=== PATIENT | female | born 1970 | race Caucasian/White ===

== ENCOUNTER → 2018-01-07 | Day surgery (SDC) | payer BC ==
--- NOTE | 2018-01-08 15:47 | PATH ---
Surgical Pathology Report Patient Name: HAKEEM NASCIMENTO [facility]. Rec. #: [id number] /Age/Gender: 1970 (Age: 47) / F Account: [id number] Location: [facility] Taken: 01/07/2018 Received: 01/07/2018 Reported: 01/08/2018 Physicians: Sahra Collier M.D. Specimen(s) Received A: LEFT BREAST SPECIMEN WITH CALCIFICATIONS B: LEFT BREAST SPECIMEN WITHOUT CALCIFICATIONS Clinical History Nonpalpable lesion Mammographic findings: Microcalcification, suspicious Final Diagnosis A. LEFT BREAST SPECIMEN WITH CALCIFICATIONS, STEREOTACTIC BIOPSY: DUCTAL CARCINOMA IN SITU (DCIS), HIGH NUCLEAR GRADE, SOLID AND COMEDO TYPE, WITH LOBULAR EXTENSION. NECROSIS AND CALCIFICATIONS SEEN IN DCIS. B. LEFT BREAST SPECIMEN WITHOUT CALCIFICATIONS, STEREOTACTIC BIOPSY: DUCTAL CARCINOMA IN SITU (DCIS), INTERMEDIATE TO HIGH NUCLEAR GRADE, SOLID AND CRIBRIFORM TYPE, WITH LOBULAR EXTENSION. Results of Estrogen Receptor (ER) and Progesterone Receptor (CT) studies performed on block "A" at [facility] are as follows: ER (clone [id number] mouse monoclonal antibody by Leica): 100% nuclear staining with strong intensity (Positive). CT (clone16 mouse monoclonal antibody by Leica): >1% nuclear staining with strong intensity (Positive). Results of Estrogen Receptor (ER) and Progesterone Receptor (CT) studies performed on block "B" at [facility] are as follows: ER (clone [id number] mouse monoclonal antibody by Leica): 100% nuclear staining with strong intensity (Positive). CT (clone16 mouse monoclonal antibody by Leica): 40% nuclear staining with strong intensity (Positive). Positive and negative controls (internal if applicable) show appropriate results. Formalin fixation and cold ischemic times are within current ASCO/CAP recommendations for ER, CT and Her2 testing. Comment: Immunohistochemical stains performed at block "B" showed the following results: smooth muscle myosin heavy chain and p63 highlighted myoepithelial cell layer in the areas of interest, consistent with DCIS. E-Cadherin performed at block "A" show strong membranous staining pattern in the DCIS with lobular extension. Intradepartmental case reviewed with consensus on diagnosis. Electronically Signed Kiyoe Perea, M.D. Gross Description A. Received in formalin labeled "left breast with calcifications," are 5 proctor-yellow, cylindrical portions of fibroadipose tissue ranging from 1.3-4.0 cm in length and averaging 0.3 cm in diameter. The specimens are submitted in toto in one cassette. B. Received in formalin labeled "left breast without calcifications," are 5 porctor-yellow, cylindrical portions of fibroadipose tissue ranging from 0.3-2.5 cm in length and averaging 0.3 cm in diameter. The specimens are submitted in toto in one cassette. Time to formalin fixation: 5 minutes Total formalin fixation time: Approximately 8 hours. 01/07/2018 saudi01/07/2018
== END | disposition home or self-care (01) ==
LOC: FMAMMOTONE 08:13
PROVIDERS: ATTEND Family Medicine
PROC: 0HBU3ZX Excision of Left Breast, Percutaneous Approach, Diagnostic (ICD-10-PCS; principal; 2018-01-07)
DX: D05.92 Unspecified type of carcinoma in situ of left breast (principal); Z17.0 Estrogen receptor positive status [ER+]; R92.1 Mammographic calcification found on diagnostic imaging of breast
CPT/HCPCS: 19081; 88305-TC; 88341-TC; 88342-TC

== ENCOUNTER → 2018-02-17 | Day surgery (SDC) | payer BC ==
--- NOTE | 2018-02-19 09:27 | PATH ---
Surgical Pathology Report Patient Name: HAKEEM NASCIMENTO [facility]. Rec. #: [id number] /Age/Gender: 1970 (Age: 47) / F Account: [id number] Location: [facility] Taken: 02/17/2018 Received: 02/17/2018 Reported: 02/19/2018 Physicians: Faisal Marquez M.D. Specimen(s) Received SUSPICIOUS ENHANCEMENT LEFT UOQ Clinical History Newly diagnosed left DCIS, suspicious enhancement left upper outer quadrant Final Diagnosis LEFT BREAST, UPPER OUTER QUADRANT, NEEDLE CORE BIOPSY: BENIGN BREAST TISSUE WITH STROMAL FIBROSIS AND FOCAL DUCTAL DILATATION. Comment: Also see prior specimen [id number]. Electronically Signed Brendan Camacho M.D. Gross Description Received in formalin, labeled with the patient's name and indicated on the requisition to be a left breast biopsy, is a 4.0 x 2.5 x 0.3 cm aggregate of multiple proctor-yellow, irregular to cylindrical portions of fibroadipose tissue. The formalin is filtered and the specimen is entirely submitted in one cassette. Time to formalin fixation: 2 minutes Total formalin fixation time: Approximately 30 hours. /02/18/2018 saudi02/18/2018
== END | disposition home or self-care (01) ==
LOC: FRADUS-SUR 10:23
PROVIDERS: ATTEND Surgery Surgical Oncology
PROC: 0HBU3ZX Excision of Left Breast, Percutaneous Approach, Diagnostic (ICD-10-PCS; principal; 2018-02-17)
DX: N60.32 Fibrosclerosis of left breast (principal); N64.89 Other specified disorders of breast; N63.21 Unspecified lump in the left breast, upper outer quadrant
CPT/HCPCS: 19085; 77065-TC; 88305-TC; C1887

== ENCOUNTER 2018-03-18 05:14 | Inpatient (IN) | payer BC ==
[2018-03-10 12:55] VITALS: BMI 34.7
[2018-03-18] MEDS ORDERED: PAPAVERINE HCL 30 MG/1 ML 10 ML VIAL NR ONE (07:03)
[2018-03-18] MEDS ORDERED: BUPIVACAINE HCL/PF 0.25% (2.5MG/ML) 10 ML VIAL ONE (07:04)
[2018-03-18] MEDS ORDERED: ISOSULFAN BLUE 10 MG/ML VIAL SQ ONE (07:04)
[2018-03-18] MEDS ORDERED: HEPARIN NA (PORCINE) 5,000 UNITS/ML 1ML VIAL ONE (07:04)
[2018-03-18] MEDS ORDERED: LIDOCAINE 1%/EPI 1:100000 (20 ML MULTI DOSE VIAL) ONE (07:36)
[2018-03-18] MEDS ORDERED: fentaNYL CITRATE 250 MCG/5 ML VIAL ONE ×2 (07:48→10:22)
[2018-03-18] MEDS ORDERED: PROPOFOL 20 ML ONE ×5 (07:48→12:57)
[2018-03-18] MEDS ORDERED: MIDAZOLAM HCL 2 MG/2 ML SINGLE DOSE VIAL ONE ×2 (07:48)
[2018-03-18] MEDS ORDERED: ROCURONIUM BROMIDE 50 MG/5 ML VIAL ONE ×4 (07:48→13:17)
[2018-03-18] MEDS ORDERED: LIDOCAINE HCL/PF 2% SDV 5ML VIAL ONE (08:19)
[2018-03-18] MEDS ORDERED: ceFAZolin SODIUM 1 GM VIAL IVPB ONE (08:55)
[2018-03-18] MEDS ORDERED: BUPIVACAINE LIPOSOME/PF (EXPAREL) 266 MG/20 ML VIAL NR ONE (10:00)
[2018-03-18] MEDS ORDERED: DEXAMETHASONE SOD PHOSPHATE 4 MG/1 ML VIAL ONE (10:22)
[2018-03-18] MEDS ORDERED: ONDANSETRON 4 MG/2 ML VIAL ONE ×2 (10:22→14:08)
[2018-03-18] MEDS ORDERED: DESFLURANE GAS 240 ML BOTTLE IH ONE (12:50)
[2018-03-18] MEDS ORDERED: ceFAZolin SODIUM 1 GM VIAL ONE ×2 (13:00→19:35)
[2018-03-18] MEDS ORDERED: NEOSTIGMINE METHYLSULFATE 0.5 MG/ML - 10 ML MDV ONE (14:08)
[2018-03-18] MEDS ORDERED: GLYCOPYRROLATE 0.2 MG/1 ML VIAL ONE (14:09)
[2018-03-18] MEDS ORDERED: diazePAM 5 MG TABLET PO PRN (15:11)
--- NOTE | 2018-03-18 15:11 | OP ---
DATE OF OPERATION: 03/18/2018 PREOPERATIVE DIAGNOSIS: Left breast ductal carcinoma in situ, high grade. POSTOPERATIVE DIAGNOSIS: Left breast ductal carcinoma in situ, high grade. PROCEDURE: Left breast total mastectomy with left axillary sentinel lymph node biopsy and left deep inferior epigastric development manager (BENJI) flap reconstruction with right reduction mastopexy. ANESTHESIA: General endotracheal. PRIMARY SURGEON: Jessica Momin MD CAMPUS POLICE OFFICER: DANNY Cao PRIMARY SURGEON FOR THE LEFT BREAST DEEP INFERIOR EPIGASTRIC MEDICATION TECHNICIAN FLAP RECONSTRUCTION AND RIGHT BREAST REDUCTION MASTOPEXY: Jessica Guadalupe MD, with his development assistant Dr. Kareem Villareal. COMPLICATIONS: None. Briefly, the patient is a 47-year-old, G4, P2, postmenopausal white female of [place] descent with no family history of breast or ovarian cancer. Her mother had colon cancer, and an uncle had prostate cancer. She was found to have some calcifications in the retroareolar region of the left breast as well as in the upper outer quadrant and underwent a stereotactic core biopsy in December 2017, showing high-grade DCIS which was ER positive, NC positive. MRI showed significant enhancement towards the upper outer aspect of the left breast, and she underwent an MRI-guided core biopsy which was benign, but this was felt to be discordant with the MRI findings. Due to the extent of the calcifications, a mastectomy is recommended on the left side with removal of the nipple. She was seen by Plastic Surgery and chose to have autologous BENJI flap reconstruction. She wanted to have symmetry reduction on the right side at the same sitting. She was brought in for the procedure on March 18, 2018. She first went to nuclear medicine where lymphoscintigraphy was performed with a periareolar injection of technetium 99 into the left breast nipple-areolar complex. She was then brought to the holding area. In the holding area, site verification was made, and informed consent was obtained. She was marked preoperatively by the plastic surgeon. She was brought into the operating room and laid on the OR table in the supine position. Venodynes were placed on the lower extremities prior to induction. She received 2 g of Ancef prior to incision. She underwent general endotracheal anesthesia. A Bishop was placed at the beginning of the case, and both breasts as well as her abdomen were sterilely prepped and draped in the usual fashion with the left arm prepped in the field. Next, 3 mL of Lymphazurin blue were injected intradermally around the periareolar region of the left breast nipple-areolar complex. At this point, after a timeout, the sentinel lymph node biopsy was first performed. Incision was made just below the hair-bearing area of the left axilla and dissection was undertaken and a blue hot lymphatic was easily seen in the level I region of the left axilla with a 10-second gamma count of 5622. No other blue or hot nodes were found, and background count after removal of this 1 node was 179. At this point, the mastectomy was performed while the BENJI flap harvesting was being performed as well as the reduction mastopexy on the right breast. The mastectomy was performed through a periareolar incision around the left breast nipple-areolar complex. Skin flaps were raised superiorly to the level of the clavicle, medially to the level of the sternum, laterally to the level of the latissimus, and inferiorly below the level of the inframammary fold. The breast was taken down off the pectoralis major muscle from medial to lateral and completely removed intact. It was oriented with a long lateral/short superior suture. It was weighed to allow for appropriate cosmetic result. Specimen radiograph was taken of the breast, showing the 2 clips which had been placed prior to the surgery. A separate anterior margin was taken on the superior skin flap and sent to pathology as specimen with a suture marking the biopsy cavity side. There was also a separate area of breast tissue removed from the lower outer quadrant which was sent separately as lower outer quadrant specimen. Hemostasis was achieved, and the wound was copiously irrigated with warm sterile saline. Estimated blood loss at this point in the procedure was about 150 mL, and she was hemodynamically stable. The rest of the procedure including the BENJI flap reconstruction and right breast reduction mastopexy will be dictated by Dr. Guadalupe and Dr. Villareal. All sponge and needle counts were correct at this point in the case. The patient will be admitted postoperatively after the BENJI flap reconstruction and monitored closely in the ICU for flap monitoring. JESSICA MOMIN M.D. [id number]
[2018-03-18] MEDS ORDERED: ONDANSETRON 4 MG/2 ML VIAL IVPUSH PRN (15:12)
[2018-03-18] MEDS ORDERED: PROMETHAZINE HCL 25 MG/1 ML VIAL IVPUSH PRN (15:12)
[2018-03-18] MEDS ORDERED: LACTATED RINGERS SOLUTION 1,000 ML IV SCH (15:15)
[2018-03-18] MEDS ORDERED: DEXTROSE 5%-0.45% SALINE 1,000 ML IV SCH (15:15)
[2018-03-18] MEDS ORDERED: HYDROmorphone *PCA* 10MG/50ML DISP.SYRIN PCA SCH (19:15)
[2018-03-18] MEDS ORDERED: DEXTROSE 5%-WATER - 50 ML IVPB ONE (19:35)
[2018-03-18] MEDS: ACETAMINOPHEN 325 MG TABLET (FP) PO PRN (19:41)
[2018-03-18] MEDS: oxyCODONE HCL 5 MG TABLET PO PRN (19:41)
[2018-03-18] MEDS: CEFAZOLIN 1 GM in DEXTROSE 5%-WATER - 50 ML IVPB SCH (19:42)
--- NOTE | 2018-03-18 20:06 | CONSULT ---
Consultation: REQUESTING PROVIDER: CONSULT REQUEST: We have been asked to medically evaluate this patient for ( specify). HISTORY OF PRESENT ILLNESS: This is a previously healthy 47 yo F with no PMH, who was recently diagnosed with L breast CA (high grade DCIS, ER/NV+) via core biopsy, here POD 0 s/p L total mastectomy, L sentinel lymph node biopsy, with autologous BENJI flap and R reduction mastopexy. Patient denies family history of breast or ovarian CA. She is BRACA negative. She is afebrile and hemodynamically stable post op. Pain is manages with PO oxycodone. She denies n/v, and pain, f/c, cp. throat pain, sob. REVIEW OF SYSTEMS: CONSTITUTIONAL: Absent: fever, chills, weight change HEENT: Absent: rhinorrhea, nasal congestion, throat pain, throat swelling, difficulty swallowing CARDIOVASCULAR: Absent: chest pain, syncope, palpitations, irregular heart rate, lightheadedness RESPIRATORY: Absent: cough, shortness of breath, orthopnea GASTROINTESTINAL: Absent: abdominal pain, abdominal distension, nausea, vomiting, diarrhea, constipation GENITOURINARY: Absent: dysuria, flank pain MUSCULOSKELETAL: Absent: back pain, neck pain SKIN: Absent: rash, itching, pallor HEMATOLOGIC/IMMUNOLOGIC: Absent: easy bleeding, easy bruising ENDOCRINE: Absent: heat intolerance, cold intolerance NEUROLOGIC: Absent: headache, focal weakness or paresthesias PSYCHIATRIC: Absent: anxiety, depression PHYSICAL EXAMINATION Vital Signs - 24 hr 03/18/18 03/18/18 03/18/18 06:29 06:30 15:00 Temperature 97.5 F L 98.4 F Pulse Rate 68 62 Respiratory 16 13 Rate Blood Pressure 112/70 127/66 O2 Sat by Pulse 98 99 Oximetry (%) 03/18/18 03/18/18 03/18/18 15:15 15:30 15:45 Temperature Pulse Rate 64 66 77 Respiratory 15 18 18 Rate Blood Pressure 115/68 111/65 120/68 O2 Sat by Pulse 99 98 98 Oximetry (%) 03/18/18 03/18/18 03/18/18 16:00 16:15 16:30 Temperature Pulse Rate 64 72 74 Respiratory 14 14 18 Rate Blood Pressure 120/62 105/67 112/64 O2 Sat by Pulse 100 98 97 Oximetry (%) 03/18/18 03/18/18 03/18/18 16:45 17:00 17:15 Temperature Pulse Rate 77 80 84 Respiratory 18 20 20 Rate Blood Pressure 114/64 112/65 118/68 O2 Sat by Pulse 97 99 99 Oximetry (%) 03/18/18 03/18/18 03/18/18 17:30 17:45 18:00 Temperature 98.5 F Pulse Rate 68 76 72 Respiratory 18 20 16 Rate Blood Pressure 118/65 121/68 120/69 O2 Sat by Pulse 98 98 Oximetry (%) GENERAL: Awake, alert, and fully oriented, in no acute distress. HEAD: Normal with no signs of trauma. EYES: Pupils equal, round and reactive to light, extraocular movements intact, sclera anicteric, conjunctiva clear. No lid lag. EARS, NOSE, THROAT: Moist mucous membranes. NECK: supple LUNGS: Breath sounds equal, clear to auscultation bilaterally. splinting due to anterior chest wall pain HEART: Regular rate and rhythm, normal S1 and S2 ABDOMEN: clean dressing in place. globally reduced bowel sounds MUSCULOSKELETAL: No CVA tenderness. UPPER EXTREMITIES: 2+ pulses, warm, well-perfused. No peripheral edema. LOWER EXTREMITIES: 2+ pulses, warm, well-perfused. No peripheral edema. L breast: flap + doppler. clean dressing intact NEUROLOGICAL: Cranial nerves II-XII grossly intact. Normal speech. PSYCHIATRIC: Cooperative. Good eye contact. Appropriate mood and affect. SKIN: Warm, dry Laboratory Results - last 24 hr 03/18/18 06:16 Blood Type B POSITIVE Antibody Screen Negative Crossmatch See Detail Active Medications Generic Name Dose Route Start Last Admin Trade Name Freq PRN Reason Stop Dose Admin Acetaminophen 650 mg 03/18/18 20:00 03/18/18 19:41 Tylenol - PO 650 mg Q6H PRN Administration PAIN 1-3 Aspirin 325 mg 03/19/18 10:00 Asa - PO DAILY [facility] Diazepam 5 mg 03/18/18 15:11 Valium - PO Q8H PRN MUSCLE SPASMS Docusate Sodium 100 mg 03/18/18 22:00 Colace - PO BID [facility] Enoxaparin Sodium 40 mg 03/19/18 10:00 Lovenox - SQ DAILY [facility] Fentanyl 50 mcg 03/18/18 15:12 Sublimaze Injection - IVPUSH [id number] PRN PAIN-PACU ORDER X 4 DOSES ONLY Cefazolin Sodium 1 gm/ 50 mls @ 100 mls/hr 03/18/18 19:50 03/18/18 19:42 Dextrose IVPB 03/19/18 19:49 100 mls/hr Q6H JERMAINE Administration Dextrose/Sodium Chloride 1,000 mls @ 125 mls/hr 03/18/18 15:15 D5-1/2ns - IV 03/19/18 08:00 ASDIR JERMAINE Dextrose/Sodium Chloride 1,000 mls @ 75 mls/hr 03/19/18 08:00 D5-1/2ns - IV ASDIR JERMAINE Ondansetron HCl 4 mg 03/18/18 15:12 Zofran Injection IVPUSH Q6H PRN NAUSEA AND/OR VOMITING Oxycodone HCl 5 mg 03/19/18 15:11 Roxicodone - PO Q4H PRN PAIN LEVEL 1-5 Oxycodone HCl 10 mg 03/18/18 15:11 03/18/18 19:41 Roxicodone - PO 10 mg Q4H PRN Administration PAIN LEVEL 6-10 Promethazine HCl 12.5 mg 03/18/18 15:12 Phenergan Injection - IVPUSH Q6H PRN NAUSEA-FOR RESCUE AFTER 15 MIN ASSESSMENT/PLAN: This is a previously healthy 47 yo F with no PMH, who was recently diagnosed with L breast CA (high grade DCIS, ER/NV+) via core biopsy here s/p L mastectomy with BENJI flap POD 0 s/p L total mastectomy, L sentinel lymph node biopsy, with autologous BENJI flap and R reduction mastopexy. -flap doppler checks q1h -bear hugger -strict bed rest/immobilization -IVF repletion d5 1/2ns @125 -pain control with oxycodone 5, 10 and tylenol -modereate PO intake allowed by surgery -Kenna sq dvt ppx -asa daily -Ppx cefazolin -monitor UO Dispo: We will continue to follow the patient. Thank you for this consultative opportunity. Problem List - Problems (1) Breast cancer Code(s): C50.919 - MALIGNANT NEOPLASM OF UNSP SITE OF UNSPECIFIED FEMALE BREAST (2) Post-mastectomy pain Code(s): G89.18 - OTHER ACUTE POSTPROCEDURAL PAIN Visit type - Emergency Visit Emergency Visit: No - New Patient This patient is new to me today: Yes Date on this admission: 03/18/18 - Critical Care Critical Care patient: Yes Total Critical Care Time (in minutes): 35 Critical Care Statement: The care of this patient involved high complexity decision making to prevent further life threatening deterioration of the patient 's condition and/or to evaluate & treat vital organ system(s) failure or risk of failure.
[2018-03-18] MEDS: DOCUSATE SODIUM 100 MG CAPSULE (FP) PO SCH (21:12)
[2018-03-18 22:06] LABS: BASO % 0.2 % (0-2.0); HEMATOCRIT 30.7 % (32.4-45.2); HEMOGLOBIN 10.4 GM/dL (10.7-15.3); LYMPH % 2.9 % (8-40); MCH 29.7 pg (25.7-33.7); MCHC 33.8 g/dl (32.0-36.0); MEAN CELL VOLUME 87.9 fl (80-96); MEAN PLT VOLUME 7.8 fl (7.5-11.1); MONO % 10.5 % (3.8-10.2); NEUT % 86.4 % (42.8-82.8); PLATELET COUNT 294 K/MM3 (134-434); RDW 13.7 % (11.6-15.6); WHITE BLOOD COUNT 10.5 K/mm3 (4.0-10.0)
[2018-03-18 22:31] LABS: ANION GAP 9 MMOL/L (8-16); BLOOD UREA NITROGEN 19 mg/dL (7-18); CALCIUM 8.4 mg/dL (8.5-10.1); CHLORIDE 107 mmol/L (98-107); CO2 23 mmol/L (21-32); CREATININE 1.1 mg/dL (0.55-1.3); GLUCOSE,RANDOM 166 mg/dL (74-106); MAGNESIUM 1.7 mg/dL (1.8-2.4); PHOSPHOROUS 4.4 mg/dL (2.5-4.9); POTASSIUM 4.7 mmol/L (3.5-5.1); SODIUM 139 mmol/L (136-145)
[2018-03-18] MEDS ORDERED: MAGNESIUM SULF 50% (8.12 MEQ/2 ML-1 GM VIAL) IVPB ONE (23:40)
[2018-03-18] MEDS ORDERED: MAGNESIUM 1GM/D5W - 1 GM/100 ML IVPB IVPB ONE (23:45)
[2018-03-19] MEDS ORDERED: DEXTROSE 5%-WATER - 50 ML IVPB ONE (00:57)
[2018-03-19] MEDS ORDERED: ceFAZolin SODIUM 1 GM VIAL ONE ×3 (00:57→14:56)
[2018-03-19] MEDS: CEFAZOLIN 1 GM in DEXTROSE 5%-WATER - 50 ML IVPB SCH (01:00)
[2018-03-19] MEDS: oxyCODONE HCL 5 MG TABLET PO PRN ×4 (04:53→21:39)
[2018-03-19] MEDS: ACETAMINOPHEN 325 MG TABLET (FP) PO PRN ×3 (04:54→21:39)
[2018-03-19 06:42] LABS: BASO % 0.1 % (0-2.0); EOS % 2.5 % (0-4.5); HEMATOCRIT 30.1 % (32.4-45.2); HEMOGLOBIN 10.1 GM/dL (10.7-15.3); LYMPH % 9.6 % (8-40); MCH 29.5 pg (25.7-33.7); MCHC 33.6 g/dl (32.0-36.0); MEAN CELL VOLUME 87.9 fl (80-96); MEAN PLT VOLUME 7.9 fl (7.5-11.1); MONO % 12.9 % (3.8-10.2); NEUT % 74.9 % (42.8-82.8); PLATELET COUNT 266 K/MM3 (134-434); RBC 3.42 M/mm3 (3.60-5.2); RDW 13.4 % (11.6-15.6); WHITE BLOOD COUNT 8.1 K/mm3 (4.0-10.0)
[2018-03-19 07:42] LABS: ANION GAP 6 MMOL/L (8-16); BLOOD UREA NITROGEN 16 mg/dL (7-18); CALCIUM 7.8 mg/dL (8.5-10.1); CHLORIDE 104 mmol/L (98-107); CO2 26 mmol/L (21-32); GLUCOSE,RANDOM 130 mg/dL (74-106); MAGNESIUM 2.3 mg/dL (1.8-2.4); PHOSPHOROUS 3.2 mg/dL (2.5-4.9); POTASSIUM 4.4 mmol/L (3.5-5.1); SODIUM 136 mmol/L (136-145)
[2018-03-19] MEDS ORDERED: DEXTROSE 5%-0.45% SALINE 1,000 ML IV SCH (08:00)
--- NOTE | 2018-03-19 08:21 | SURG ---
Surgery Welt Drawer Note Welt Drawer: Trace Vazquez PA-C Date of Service: 03/18/18 Diagnosis: Breast cancer Procedure: BENJI flap reconstruction to left breast s/p mastectomy I was present for the entirety of the operative procedure. For further detail, please refer to operative report. Visit type - Case Type Case Type: Scheduled - New patient This patient is new to me today: Yes Date on this admission: 03/19/18
[2018-03-19] MEDS ORDERED: PT OWN MED DRAWER 7, Y5N ONE (08:24)
[2018-03-19] MEDS ORDERED: DEXTROSE 5%-WATER 100 ML IVPB ONE ×2 (08:33→14:56)
[2018-03-19] MEDS: CEFAZOLIN 1 GM in DEXTROSE 5%-WATER 100 ML IVPB SCH ×2 (08:35→15:03)
[2018-03-19] MEDS: ENOXAPARIN NA (PORCINE) 40 MG/0.4 ML DISP.SYRIN SQ SCH (09:33)
[2018-03-19] MEDS: ASPIRIN 325 MG TABLET PO SCH (09:33)
[2018-03-19] MEDS: DOCUSATE SODIUM 100 MG CAPSULE (FP) PO SCH ×2 (09:33→21:35)
--- NOTE | 2018-03-19 09:41 | PN ---
Progress Note (short form) - Note Progress Note: POD#1 Pt without any complaints this am. She was medicated with oral pain meds and her pain improved. As per the nursing services, flap checked this am with a good signal. Vital Signs Period Temp Pulse Resp BP Sys/Hall Pulse Ox Last 24 Hr 98.2 F-98.7 F 62-97 13-20 96-127/51-69 97-100 FRANTZ- right breast: 85 serosangrenous left breast: 85 serosangreous R lower abd: 70 serosangrenous L lower abd: 55 serosangrenous UOP-900 ml slight blue-green in color GEN: A&0x3, pt resting comfortable, andressa hugger in place. Chest: pink bra in place. left flap with good signal, gd cap refill to flap and color. Incisions c/d/i mild ecchymosis to breast tissue Right breast: Incision c/d/i with mild ecchymosis ABD: Inc c/d/i with prineo dressing. Umbilicus inc c/d/i/viable. Replaced dressing with eyepad/papertape LE: TEDs in place, no calf tenderness or swelling noted b/l CBC, BMP 03/19/18 05:30 03/19/18 05:30 A/p: 47 yo female s/p Right breast reduction mastopexy, left mastectomy with BENJI flap reconstruction Diet as tolerated today OOB to chair and check doppler of flap after oob Pain management as needed Remove rodriguez once oob to chair Continue andressa solorio DT ppx with lovenox and Aspirin 325mg daily D/w Dr. Villareal
--- NOTE | 2018-03-19 10:39 | PN ---
Progress Note, Physician Chief Complaint: Left breast DCIS S/P Left total mastectomy ,sentenel node biopsy BENJI reconstruction and mastopexy right breast History of Present Illness: patient is still in bed but Physical therapist will walk with her today and foey will be discontinued, pain managed with oxycodone,no nausea or vomiting, drinking fluids - Current Medication List Current Medications: Active Medications Acetaminophen (Tylenol -) 650 mg PO Q6H PRN PRN Reason: PAIN 1-3 Last Admin: 03/19/18 04:54 Dose: 650 mg Aspirin (Asa -) 325 mg PO DAILY [facility] Last Admin: 03/19/18 09:33 Dose: 325 mg Diazepam (Valium -) 5 mg PO Q8H PRN PRN Reason: MUSCLE SPASMS Docusate Sodium (Colace -) 100 mg PO BID [facility] Last Admin: 03/19/18 09:33 Dose: 100 mg Enoxaparin Sodium (Lovenox -) 40 mg SQ DAILY [facility] Last Admin: 03/19/18 09:33 Dose: 40 mg Fentanyl (Sublimaze Injection -) 50 mcg IVPUSH [id number] PRN PRN Reason: PAIN-PACU ORDER X 4 DOSES ONLY Dextrose/Sodium Chloride (D5-1/2ns -) 1,000 mls @ 75 mls/hr IV ASDIR [facility] Stop: 03/19/18 17:00 Last Admin: 03/19/18 08:00 Dose: 75 mls/hr Cefazolin Sodium 1 gm/ (Dextrose) 100 mls @ 200 mls/hr IVPB Q6H [facility] Stop: 03/19/18 19:49 Last Admin: 03/19/18 08:35 Dose: 200 mls/hr Ondansetron HCl (Zofran Injection) 4 mg IVPUSH Q6H PRN PRN Reason: NAUSEA AND/OR VOMITING Oxycodone HCl (Roxicodone -) 10 mg PO Q4H PRN PRN Reason: PAIN LEVEL 6-10 Last Admin: 03/19/18 04:53 Dose: 10 mg Oxycodone HCl (Roxicodone -) 5 mg PO Q4H PRN PRN Reason: PAIN LEVEL 1-5 Last Admin: 03/19/18 10:27 Dose: 5 mg Promethazine HCl (Phenergan Injection -) 12.5 mg IVPUSH Q6H PRN PRN Reason: NAUSEA-FOR RESCUE AFTER 15 MIN - Objective Vital Signs: Vital Signs Temperature 98.7 F 03/19/18 06:00 Pulse Rate 96 H 03/19/18 08:00 Respiratory Rate 14 03/19/18 09:00 Blood Pressure 96/53 L 03/19/18 08:00 O2 Sat by Pulse Oximetry (%) 100 03/19/18 09:00 Constitutional: Yes: No Distress Breast(s): Yes: Other (Right breast mastopexy incision intact, left breast BENJI flap viable and good pulses minimal echymosis incision intact, abdomen incision intact and soft) Labs: CBC, BMP 03/19/18 05:30 03/19/18 05:30 Problem List - Problems (1) Breast cancer Code(s): C50.919 - MALIGNANT NEOPLASM OF UNSP SITE OF UNSPECIFIED FEMALE BREAST Qualifiers: Breast location: unspecified site of breast Laterality: left Assessment/Plan continue IV antibiotics ASA po , continue po intact lovenox SQ oxycodone prn pain OOB with asst Physical therapist today HONG Edwards continue advance po intake
--- NOTE | 2018-03-19 11:42 | PN ---
Progress Note (short form) - Note Progress Note: ANESTHESIOLOGY POST-OP CHECK 47F s/p left mastectomy and BENJI flap reconstruction under general anesthesia, POD #1. No acute complaints. Denies N/V. Pain 2/10 and tolerable. Vital Signs Temperature 98.2 F 03/19/18 10:00 Pulse Rate 95 H 03/19/18 10:00 Respiratory Rate 14 03/19/18 10:00 Blood Pressure 102/52 L 03/19/18 10:00 O2 Sat by Pulse Oximetry (%) 100 03/19/18 09:00 Active Medications Acetaminophen (Tylenol -) 650 mg PO Q6H PRN PRN Reason: PAIN 1-3 Last Admin: 03/19/18 04:54 Dose: 650 mg Aspirin (Asa -) 325 mg PO DAILY [facility] Last Admin: 03/19/18 09:33 Dose: 325 mg Diazepam (Valium -) 5 mg PO Q8H PRN PRN Reason: MUSCLE SPASMS Docusate Sodium (Colace -) 100 mg PO BID [facility] Last Admin: 03/19/18 09:33 Dose: 100 mg Enoxaparin Sodium (Lovenox -) 40 mg SQ DAILY [facility] Last Admin: 03/19/18 09:33 Dose: 40 mg Fentanyl (Sublimaze Injection -) 50 mcg IVPUSH [id number] PRN PRN Reason: PAIN-PACU ORDER X 4 DOSES ONLY Dextrose/Sodium Chloride (D5-1/2ns -) 1,000 mls @ 75 mls/hr IV ASDIR [facility] Stop: 03/19/18 17:00 Last Admin: 03/19/18 08:00 Dose: 75 mls/hr Cefazolin Sodium 1 gm/ (Dextrose) 100 mls @ 200 mls/hr IVPB Q6H [facility] Stop: 03/19/18 19:49 Last Admin: 03/19/18 08:35 Dose: 200 mls/hr Ondansetron HCl (Zofran Injection) 4 mg IVPUSH Q6H PRN PRN Reason: NAUSEA AND/OR VOMITING Oxycodone HCl (Roxicodone -) 10 mg PO Q4H PRN PRN Reason: PAIN LEVEL 6-10 Last Admin: 03/19/18 04:53 Dose: 10 mg Oxycodone HCl (Roxicodone -) 5 mg PO Q4H PRN PRN Reason: PAIN LEVEL 1-5 Last Admin: 03/19/18 10:27 Dose: 5 mg Promethazine HCl (Phenergan Injection -) 12.5 mg IVPUSH Q6H PRN PRN Reason: NAUSEA-FOR RESCUE AFTER 15 MIN Gen: Awake, alert, no apparent distress No apparent anesthesia complications. Pain controlled. Continue management as per primary team.
--- NOTE | 2018-03-19 12:25 | PN ---
Teaching Attending Note Name of Resident: Usman Márquez ATTENDING PHYSICIAN STATEMENT I saw and evaluated the patient. I reviewed the resident's note and discussed the case with the resident. I agree with the resident's findings and plan as documented. SUBJECTIVE: Patient seen and examined in the ICU. Awake and alert. Reports difficulty moving her LUE and some mild discomfort at the surgical site. Pain meds seem helpful. No SOB. Flap doppler signal intact. Intake & Output 03/16/18 03/17/18 03/18/18 03/19/18 23:59 23:59 23:59 23:59 Intake Total 4425 1425 Output Total 1335 710 Balance 3090 715 Last Vital Signs Temp Pulse Resp BP Pulse Ox 98.2 F 95 H 14 102/52 L 100 03/19/18 10:00 03/19/18 10:00 03/19/18 10:00 03/19/18 10:00 03/19/18 09:00 Active Medications Acetaminophen (Tylenol -) 650 mg PO Q6H PRN PRN Reason: PAIN 1-3 Last Admin: 03/19/18 04:54 Dose: 650 mg Aspirin (Asa -) 325 mg PO DAILY [facility] Last Admin: 03/19/18 09:33 Dose: 325 mg Diazepam (Valium -) 5 mg PO Q8H PRN PRN Reason: MUSCLE SPASMS Docusate Sodium (Colace -) 100 mg PO BID [facility] Last Admin: 03/19/18 09:33 Dose: 100 mg Enoxaparin Sodium (Lovenox -) 40 mg SQ DAILY [facility] Last Admin: 03/19/18 09:33 Dose: 40 mg Fentanyl (Sublimaze Injection -) 50 mcg IVPUSH [id number] PRN PRN Reason: PAIN-PACU ORDER X 4 DOSES ONLY Dextrose/Sodium Chloride (D5-1/2ns -) 1,000 mls @ 75 mls/hr IV ASDIR [facility] Stop: 03/19/18 17:00 Last Admin: 03/19/18 08:00 Dose: 75 mls/hr Cefazolin Sodium 1 gm/ (Dextrose) 100 mls @ 200 mls/hr IVPB Q6H [facility] Stop: 03/19/18 19:49 Last Admin: 03/19/18 08:35 Dose: 200 mls/hr Ondansetron HCl (Zofran Injection) 4 mg IVPUSH Q6H PRN PRN Reason: NAUSEA AND/OR VOMITING Oxycodone HCl (Roxicodone -) 10 mg PO Q4H PRN PRN Reason: PAIN LEVEL 6-10 Last Admin: 03/19/18 04:53 Dose: 10 mg Oxycodone HCl (Roxicodone -) 5 mg PO Q4H PRN PRN Reason: PAIN LEVEL 1-5 Last Admin: 03/19/18 10:27 Dose: 5 mg Promethazine HCl (Phenergan Injection -) 12.5 mg IVPUSH Q6H PRN PRN Reason: NAUSEA-FOR RESCUE AFTER 15 MIN GENERAL: Awake, alert, and fully oriented, in no acute distress. HEAD: Normal with no signs of trauma. EYES: Pupils equal, round and reactive to light, extraocular movements intact, sclera anicteric, conjunctiva clear. No lid lag. EARS, NOSE, THROAT: Moist mucous membranes. NECK: supple LUNGS: Breath sounds equal, clear to auscultation bilaterally. splinting due to anterior chest wall discomfort HEART: Regular rate and rhythm, normal S1 and S2 ABDOMEN: clean dressing in place, (+) BS MUSCULOSKELETAL: No CVA tenderness. UPPER EXTREMITIES: 2+ pulses, warm, well-perfused. No peripheral edema. LOWER EXTREMITIES: 2+ pulses, warm, well-perfused. No peripheral edema. L breast: flap + doppler. clean dressing intact NEUROLOGICAL: Non-focal PSYCHIATRIC: Cooperative. Good eye contact. Appropriate mood and affect. SKIN: Warm, dry Laboratory Results - last 24 hr 03/18/18 03/18/18 03/19/18 21:30 21:30 05:30 WBC 10.5 H 8.1 RBC 3.50 L 3.42 L Hgb 10.4 L 10.1 L Hct 30.7 L D 30.1 L MCV 87.9 87.9 MCH 29.7 29.5 MCHC 33.8 33.6 RDW 13.7 13.4 Plt Count 294 266 MPV 7.8 7.9 Absolute Neuts (auto) 9.1 H 6.1 Neutrophils % 86.4 H D 74.9 Lymphocytes % 2.9 L D 9.6 D Monocytes % 10.5 H 12.9 H Eosinophils % 0.0 D 2.5 D Basophils % 0.2 0.1 Nucleated RBC % 0 0 Sodium 139 Potassium 4.7 Chloride 107 Carbon Dioxide 23 Anion Gap 9 BUN 19 H Creatinine 1.1 Creat Clearance w eGFR 53.24 Random Glucose 166 H Calcium 8.4 L Phosphorus 4.4 Magnesium 1.7 L 03/19/18 05:30 WBC RBC Hgb Hct MCV MCH MCHC RDW Plt Count MPV Absolute Neuts (auto) Neutrophils % Lymphocytes % Monocytes % Eosinophils % Basophils % Nucleated RBC % Sodium 136 Potassium 4.4 Chloride 104 Carbon Dioxide 26 Anion Gap 6 L BUN 16 Creatinine 1.0 Creat Clearance w eGFR 59.43 Random Glucose 130 H Calcium 7.8 L Phosphorus 3.2 Magnesium 2.3 Problem List - Problems (1) Breast cancer Code(s): C50.919 - MALIGNANT NEOPLASM OF UNSP SITE OF UNSPECIFIED FEMALE BREAST (2) Post-mastectomy pain Code(s): G89.18 - OTHER ACUTE POSTPROCEDURAL PAIN ASSESSMENT/PLAN: POD #1: Left total mastectomy, Left sentinel LN biopsy, Autologous BENJI flap, Right reduction mastopexy Left breast CA (high grade DCIS, ER/MT+) IVF Warming blanket PO as tolerated Flap doppler checks Q1h Pain control with oxycodone Lovenox ASA Cefazolin per surgery Incentive Spirometry ICU monitoring for frequent flap checks Dr Giraldo Critical care time spent in reviewing chart, evaluating patient and formulating plan - 36 minutes.
--- NOTE | 2018-03-19 12:45 | PN ---
Physical Exam: SUBJECTIVE: Patient seen and examined at bedside. Pain well controlled. Urinating green urine 2/2 radioactive dye injection. As yet no flatus or BMs. OBJECTIVE: Vital Signs Period Temp Pulse Resp BP Sys/Hall Pulse Ox Last 24 Hr 98.2 F-98.7 F 62-97 13-20 96-127/51-69 97-100 GENERAL: Awake, alert, and fully oriented, in no acute distress. HEAD: Normal with no signs of trauma. EYES: Pupils equal, round and reactive to light, extraocular movements intact, sclera anicteric, conjunctiva clear. No lid lag. EARS, NOSE, THROAT: Moist mucous membranes. NECK: supple LUNGS: Breath sounds equal, clear to auscultation bilaterally. splinting due to anterior chest wall pain HEART: Regular rate and rhythm, normal S1 and S2 ABDOMEN: clean dressing in place. globally reduced bowel sounds MUSCULOSKELETAL: No CVA tenderness. UPPER EXTREMITIES: 2+ pulses, warm, well-perfused. No peripheral edema. LOWER EXTREMITIES: 2+ pulses, warm, well-perfused. No peripheral edema. L breast: flap + doppler. clean dressing intact NEUROLOGICAL: Cranial nerves II-XII grossly intact. Normal speech. PSYCHIATRIC: Cooperative. Good eye contact. Appropriate mood and affect. SKIN: Warm, dry DRAINS: R upper breast, R lower abd, L upper breast, L lower abd, all small volume bloody drainage Laboratory Results - last 24 hr 03/18/18 03/18/18 03/19/18 21:30 21:30 05:30 WBC 10.5 H 8.1 RBC 3.50 L 3.42 L Hgb 10.4 L 10.1 L Hct 30.7 L D 30.1 L MCV 87.9 87.9 MCH 29.7 29.5 MCHC 33.8 33.6 RDW 13.7 13.4 Plt Count 294 266 MPV 7.8 7.9 Absolute Neuts (auto) 9.1 H 6.1 Neutrophils % 86.4 H D 74.9 Lymphocytes % 2.9 L D 9.6 D Monocytes % 10.5 H 12.9 H Eosinophils % 0.0 D 2.5 D Basophils % 0.2 0.1 Nucleated RBC % 0 0 Sodium 139 Potassium 4.7 Chloride 107 Carbon Dioxide 23 Anion Gap 9 BUN 19 H Creatinine 1.1 Creat Clearance w eGFR 53.24 Random Glucose 166 H Calcium 8.4 L Phosphorus 4.4 Magnesium 1.7 L 03/19/18 05:30 WBC RBC Hgb Hct MCV MCH MCHC RDW Plt Count MPV Absolute Neuts (auto) Neutrophils % Lymphocytes % Monocytes % Eosinophils % Basophils % Nucleated RBC % Sodium 136 Potassium 4.4 Chloride 104 Carbon Dioxide 26 Anion Gap 6 L BUN 16 Creatinine 1.0 Creat Clearance w eGFR 59.43 Random Glucose 130 H Calcium 7.8 L Phosphorus 3.2 Magnesium 2.3 Active Medications Generic Name Dose Route Start Last Admin Trade Name Freq PRN Reason Stop Dose Admin Acetaminophen 650 mg 03/18/18 20:00 03/19/18 04:54 Tylenol - PO 650 mg Q6H PRN Administration PAIN 1-3 Aspirin 325 mg 03/19/18 10:00 03/19/18 09:33 Asa - PO 325 mg DAILY [facility] Administration Diazepam 5 mg 03/18/18 15:11 Valium - PO Q8H PRN MUSCLE SPASMS Docusate Sodium 100 mg 03/18/18 22:00 03/19/18 09:33 Colace - PO 100 mg BID [facility] Administration Enoxaparin Sodium 40 mg 03/19/18 10:00 03/19/18 09:33 Lovenox - SQ 40 mg DAILY [facility] Administration Fentanyl 50 mcg 03/18/18 15:12 Sublimaze Injection - IVPUSH [id number] PRN PAIN-PACU ORDER X 4 DOSES ONLY Dextrose/Sodium Chloride 1,000 mls @ 75 mls/hr 03/19/18 08:00 03/19/18 08:00 D5-1/2ns - IV 03/19/18 17:00 75 mls/hr ASDIR [facility] Administration Cefazolin Sodium 1 gm/ 100 mls @ 200 mls/hr 03/19/18 08:28 03/19/18 08:35 Dextrose IVPB 03/19/18 19:49 200 mls/hr Q6H [facility] Administration Ondansetron HCl 4 mg 03/18/18 15:12 Zofran Injection IVPUSH Q6H PRN NAUSEA AND/OR VOMITING Oxycodone HCl 10 mg 03/18/18 15:11 03/19/18 04:53 Roxicodone - PO 10 mg Q4H PRN Administration PAIN LEVEL 6-10 Oxycodone HCl 5 mg 03/18/18 20:20 03/19/18 10:27 Roxicodone - PO 5 mg Q4H PRN Administration PAIN LEVEL 1-5 Promethazine HCl 12.5 mg 03/18/18 15:12 Phenergan Injection - IVPUSH Q6H PRN NAUSEA-FOR RESCUE AFTER 15 MIN ASSESSMENT/PLAN: 47 y/o F w/ high grade ER+/SC+ L breast DCIS s/p L total mastectomy w/ BENJI flap reconstruction and R reduction mastopexy admitted to ICU for flap monitoring. #POD1 s/p L total mastectomy w/ BENJI flap reconstruction and R reduction mastopexy -flap doppler checks q1h -bear hugger -OOB w/ PT -IVF repletion d5 1/2ns @75 -pain control with oxycodone 5, 10 and tylenol -cont Ancef -cont ASA -cont Lovenox -monitor UO and drains -clear liquid diet, no chocolate, no caffeine -dc rodriguez -incentive spirometry #FEN -D51/2NS @ 75 -BMP in AM -clear liquid no chocolate no caffeine #PPx -DVT: Lovenox 40sq -GI: colace #dispo -ICU Visit type - Emergency Visit Emergency Visit: No - New Patient This patient is new to me today: No - Critical Care Critical Care patient: Yes Total Critical Care Time (in minutes): 40 Critical Care Statement: The care of this patient involved high complexity decision making to prevent further life threatening deterioration of the patient 's condition and/or to evaluate & treat vital organ system(s) failure or risk of failure.
[2018-03-19] MEDS ORDERED: oxyCODONE HCL 5 MG TABLET PO PRN (15:11)
[2018-03-20] MEDS: oxyCODONE HCL 5 MG TABLET PO PRN ×4 (05:16→23:38)
[2018-03-20] MEDS: ACETAMINOPHEN 325 MG TABLET (FP) PO PRN ×2 (05:17→23:39)
[2018-03-20 05:57] LABS: MCH 29.7 pg (25.7-33.7); MCHC 33.4 g/dl (32.0-36.0); MEAN CELL VOLUME 88.9 fl (80-96); MEAN PLT VOLUME 7.8 fl (7.5-11.1); PLATELET COUNT 217 K/MM3 (134-434); RBC 3.03 M/mm3 (3.60-5.2); RDW 13.3 % (11.6-15.6); WHITE BLOOD COUNT 7.5 K/mm3 (4.0-10.0)
[2018-03-20 06:34] LABS: ANION GAP 7 MMOL/L (8-16); BLOOD UREA NITROGEN 10 mg/dL (7-18); CHLORIDE 106 mmol/L (98-107); CO2 27 mmol/L (21-32); CREATININE 0.7 mg/dL (0.55-1.3); GLUCOSE,RANDOM 86 mg/dL (74-106); MAGNESIUM 2.1 mg/dL (1.8-2.4); POTASSIUM 4.1 mmol/L (3.5-5.1); SODIUM 140 mmol/L (136-145)
[2018-03-20] MEDS: ENOXAPARIN NA (PORCINE) 40 MG/0.4 ML DISP.SYRIN SQ SCH (09:30)
[2018-03-20] MEDS: ASPIRIN 325 MG TABLET PO SCH (09:30)
[2018-03-20] MEDS: DOCUSATE SODIUM 100 MG CAPSULE (FP) PO SCH ×2 (09:30→21:36)
--- NOTE | 2018-03-20 10:21 | PN ---
Progress Note (short form) - Note Progress Note: Doing well with good pulses on flap OOB Najma diet Continue q1 h Continue ICU care
--- NOTE | 2018-03-20 10:26 | PN ---
Teaching Attending Note Name of Resident: Martine Morrow ATTENDING PHYSICIAN STATEMENT I saw and evaluated the patient. I reviewed the resident's note and discussed the case with the resident. I agree with the resident's findings and plan as documented. SUBJECTIVE: Pt seen and examined in the ICU. Pain controlled. +flatus. No nausea or vomiting. No fevers or chills. Flaps intact. OBJECTIVE: Vital Signs Period Temp Pulse Resp BP Sys/Hall Pulse Ox Last 24 Hr 98.2 F-99.2 F 91-100 14-18 100-112/47-69 98 Intake & Output 03/17/18 03/18/18 03/19/18 03/20/18 23:59 23:59 23:59 23:59 Intake Total 4425 1885 400 Output Total 1335 2205 640 Balance 3090 -320 -240 Gen: NAD in chair Heart: RRR Lung: decreased breath sounds at the bases Abd: soft, nontender Ext: no edema Drains with serosanguinous fluid CBC, BMP 03/20/18 05:30 03/20/18 05:30 Active Medications Acetaminophen (Tylenol -) 650 mg PO Q6H PRN PRN Reason: PAIN 1-3 Last Admin: 03/20/18 05:17 Dose: 650 mg Aspirin (Asa -) 325 mg PO DAILY [facility] Last Admin: 03/20/18 09:30 Dose: 325 mg Diazepam (Valium -) 5 mg PO Q8H PRN PRN Reason: MUSCLE SPASMS Docusate Sodium (Colace -) 100 mg PO BID [facility] Last Admin: 03/20/18 09:30 Dose: 100 mg Enoxaparin Sodium (Lovenox -) 40 mg SQ DAILY [facility] Last Admin: 03/20/18 09:30 Dose: 40 mg Fentanyl (Sublimaze Injection -) 50 mcg IVPUSH [id number] PRN PRN Reason: PAIN-PACU ORDER X 4 DOSES ONLY Ondansetron HCl (Zofran Injection) 4 mg IVPUSH Q6H PRN PRN Reason: NAUSEA AND/OR VOMITING Oxycodone HCl (Roxicodone -) 10 mg PO Q4H PRN PRN Reason: PAIN LEVEL 6-10 Last Admin: 03/20/18 09:28 Dose: 10 mg Oxycodone HCl (Roxicodone -) 5 mg PO Q4H PRN PRN Reason: PAIN LEVEL 1-5 Last Admin: 03/19/18 21:39 Dose: 5 mg Promethazine HCl (Phenergan Injection -) 12.5 mg IVPUSH Q6H PRN PRN Reason: NAUSEA-FOR RESCUE AFTER 15 MIN ASSESSMENT AND PLAN: L Breast Ca s/p L Total Mastectomy/BENJI flap reconstruction - pain control - incentive spirometry - monitor drain output - IVF - monitor urine output, creatinine - PO as tolerated - DVT prophylaxis - ICU monitoring for flap checks
--- NOTE | 2018-03-20 10:33 | PN ---
Progress Note, Physician Chief Complaint: Left breast cancer DCIS central/overlapping regions s/p left breast total mastectomy with SLN biopsy and BENJI flap reconstruction History of Present Illness: The patient was recently diagnosed with extensive left breast central calcifications with biopsy proven DCIS. MRI showed other areas of significant enhancement and mastectomy was recommended. She underwent a left breast total mastectomy and sentinel lymph node biopsy with BENJI flap reconstruction on March 18, 2018. She was admitted to the ICU postoperatively for flap monitoring wound management. - Current Medication List Current Medications: Active Medications Acetaminophen (Tylenol -) 650 mg PO Q6H PRN PRN Reason: PAIN 1-3 Last Admin: 03/20/18 05:17 Dose: 650 mg Aspirin (Asa -) 325 mg PO DAILY [facility] Last Admin: 03/20/18 09:30 Dose: 325 mg Diazepam (Valium -) 5 mg PO Q8H PRN PRN Reason: MUSCLE SPASMS Docusate Sodium (Colace -) 100 mg PO BID [facility] Last Admin: 03/20/18 09:30 Dose: 100 mg Enoxaparin Sodium (Lovenox -) 40 mg SQ DAILY [facility] Last Admin: 03/20/18 09:30 Dose: 40 mg Fentanyl (Sublimaze Injection -) 50 mcg IVPUSH [id number] PRN PRN Reason: PAIN-PACU ORDER X 4 DOSES ONLY Ondansetron HCl (Zofran Injection) 4 mg IVPUSH Q6H PRN PRN Reason: NAUSEA AND/OR VOMITING Oxycodone HCl (Roxicodone -) 10 mg PO Q4H PRN PRN Reason: PAIN LEVEL 6-10 Last Admin: 03/20/18 09:28 Dose: 10 mg Oxycodone HCl (Roxicodone -) 5 mg PO Q4H PRN PRN Reason: PAIN LEVEL 1-5 Last Admin: 03/19/18 21:39 Dose: 5 mg Promethazine HCl (Phenergan Injection -) 12.5 mg IVPUSH Q6H PRN PRN Reason: NAUSEA-FOR RESCUE AFTER 15 MIN - Objective Vital Signs: Vital Signs Temperature 98.6 F 03/20/18 09:22 Pulse Rate 92 H 03/20/18 09:22 Respiratory Rate 16 03/20/18 09:22 Blood Pressure 108/69 03/20/18 09:22 O2 Sat by Pulse Oximetry (%) 98 03/19/18 20:46 Constitutional: Yes: Well Nourished, No Distress, Calm Eyes: Yes: WNL HENT: Yes: WNL Neck: Yes: WNL Cardiovascular: Yes: Regular Rate and Rhythm, Other (mild tachycardia) Respiratory: Yes: Regular, CTA Bilaterally Gastrointestinal: Yes: Normal Bowel Sounds ...Rectal Exam: Yes: Deferred Genitourinary: Yes: WNL Breast(s): Yes: Other (BENJI flap warm and viable with good dopplerable signal) Extremities: Yes: WNL Wound/Incision: Yes: Clean/Dry, Well Approximated Neurological: Yes: WNL Psychiatric: Yes: Alert, Oriented Labs: CBC, BMP 03/20/18 05:30 03/20/18 05:30 Problem List - Problems (1) Breast cancer Assessment/Plan: The patient is doing well POD#2 s/p left breast total mastectomy sentinel lymph node biopsy and BENJI flap reconstruction with right breast reduction mastopexy for symmetry. She is doing well and rodriguez has been removed. BENJI flap warm and viable with good dopplerable signals. Drains functioning well. OOB ambulating today. Regular diet. Likely discharge tomorrow if doing well. Continue IV antibiotics. Code(s): C50.919 - MALIGNANT NEOPLASM OF UNSP SITE OF UNSPECIFIED FEMALE BREAST Qualifiers: Breast location: central portion of breast Estrogen receptor status: positive Patient sex: female Laterality: left Qualified Code(s): C50.112 - Malignant neoplasm of central portion of left female breast; Z17.0 - Estrogen receptor positive status [ER+]
--- NOTE | 2018-03-20 11:02 | DS ---
"Physical Examination Vital Signs: Vital Signs Temperature 98.6 F 03/20/18 09:22 Pulse Rate 92 H 03/20/18 09:22 Respiratory Rate 16 03/20/18 09:22 Blood Pressure 108/69 03/20/18 09:22 O2 Sat by Pulse Oximetry (%) 98 03/19/18 20:46 Constitutional: Yes: Well Nourished, No Distress Eyes: Yes: WNL HENT: Yes: WNL Neck: Yes: WNL Cardiovascular: Yes: Regular Rate and Rhythm Respiratory: Yes: Regular, CTA Bilaterally Gastrointestinal: Yes: Normal Bowel Sounds ...Rectal Exam: Yes: Deferred Renal/: Yes: WNL Breast(s): Yes: Other (Mastectomy wound clean, dry, and intact. Drains functioning well. Good dopplerable signal. Right breast flaps warm and viable. Abdominal wound clean, dry, and intact.) Labs: CBC, BMP 03/20/18 05:30 03/20/18 05:30 Discharge Summary Reason For Visit: LT BREAST NEOPLASM Current Active Problems Breast cancer (Acute) Post-mastectomy pain (Acute) Left breast DCIS central overlapping regions. Procedures: Principal: Left breast total mastectomy with sentinel lymph node biopsy and left BENJI flap reconstruction with right breast reduction mastopexy for symmetry. Hospital Course: The patient was admitted postoperatively for pain control and wound management. She was admitted to the ICU for frequent flap doppler checks and was doing well and was OOB and rodriguez was removed by POD #1. Her flap remained warm and viable with good dopplerable signals and she had good pain control by POD#4 and was stable for discharge home. She will follow up in the office with Drs. Oakes and Anayeli in 1 week. No heavy lifting or exercise. No bath/shower until drains removed. Record drain outputs daily. Keep supportive bra in place day/ night. Percocet for pain and cefadroxil antibiotics while drains in place. Condition: Stable - Instructions Diet, Activity, Other Instructions: Dr. Guadalupe & Dionna Post Operative Instructions Physical Activity Please take it easy for the first few days. Please be careful moving your arms too much and using your pectoralis muscles ( chest) for the first few days as well. No heavy lifting or exercise until seen by your surgeon. You may walk unlimited amounts and climb stairs. Wound Care Can sponge bath, but avoid showering and getting drains wet. Please keep all dressings on as is. Can remove the gauze in bra before sponge bathing, but leave all the tapes/steri-strips on. Please wear surgical bra at all times, except when sponge bathing. Swelling in the abdomen, flanks and thighs is to be expected. Feeling of deep soreness is also to be expected. Diet Resume regular diet. Encourage low salt diet to help with swelling. Encourage fluid intake. Pain Management Patient already received all prescriptions prior to surgery. Please take them as instructed. Do not operate a vehicle while taking narcotic medication. Do not drink alcoholic beverages while taking narcotics. You may take Tylenol or acetaminophen. Any pain prescription medication ordered should be taken as prescribed for moderate to severe pain. Call Dr Pierce & or Dionna for any of the following: Severe pain not relieved by medication Fever of 101 or higher Excessive bleeding or drainage on dressing Any chest pain or shortness of breath, seek Emergency Care. Please call our office within one week to make an appointment to see Dr. Guadalupe Call [phone]. If you have any questions or concerns, please call/return to office sooner. This report was requested by: Maria Antonia Pham | Reference #: [id number] Referrals: Juan Daniel Oakes MD [Staff Physician] - Juan Carlos Guadalupe MD [Staff Physician] - Disposition: HOME - Home Medications Comprehensive Discharge Medication List: Ambulatory Orders Aspirin [ASA -] 81 mg PO DAILY #30 tab.chew 03/19/18 Cefadroxil 500 mg PO BID #14 capsule 03/19/18 Oxycodone HCl/Acetaminophen [Percocet 5-325 mg Tablet] 1 - 2 tab PO Q6H PRN #30 tab MDD 8 03/19/18"
--- NOTE | 2018-03-20 11:10 | PN ---
Physical Exam: SUBJECTIVE: - Pain well controlled - Tolerating diet though poor appetite so far - OOB without issues - NAEO OBJECTIVE: Vital Signs Period Temp Pulse Resp BP Sys/Hall Pulse Ox Last 24 Hr 98.2 F-99.2 F 91-100 14-18 100-112/47-69 98-98 General: Comfortable, no acute distress HEENT: PERRL, EOMI, MMM, voice normal, normal neck ROM, no LAD Cards: RRR, no murmur appreciated Pulm: Comfortable on room air, clear to auscultation bilaterally Breast: s/p L mastectomy with reconstruction and R reduction. Surgical support bra in place. Flap slightly pale in appearance but strong biphasic to triphasic signal and edges healthy in appearance. Flap soft, appropriately TTP. Abd: Soft, appropriate tender. Transverse abdominal incision with surgical dressing in place, c/d/i. B/L abdominal FRANTZ drains with SS drainage. Ext: Atraumatic. No LE edema. ROM intact. Strength 5/5 and equal bilaterally Vasc: Extremities WWP. Palpable radial and pedal pulses bilaterally Skin: Normal color, no rashes or lesions Neuro: A&Ox3, CN grossly intact, normal speech, motor/sensory grossly intact and symmetric Psych: Mood appropriate to situation Laboratory Results - last 24 hr 03/18/18 03/20/18 03/20/18 06:16 05:30 05:30 WBC 7.5 RBC 3.03 L Hgb 9.0 L Hct 27.0 L MCV 88.9 MCH 29.7 MCHC 33.4 RDW 13.3 Plt Count 217 MPV 7.8 Sodium 140 Potassium 4.1 Chloride 106 Carbon Dioxide 27 Anion Gap 7 L BUN 10 Creatinine 0.7 Creat Clearance w eGFR > 60 Random Glucose 86 Calcium 8.0 L Phosphorus 2.0 L Magnesium 2.1 Blood Type B POSITIVE Antibody Screen Negative Crossmatch See Detail Active Medications Generic Name Dose Route Start Last Admin Trade Name Freq PRN Reason Stop Dose Admin Acetaminophen 650 mg 03/18/18 20:00 03/20/18 05:17 Tylenol - PO 650 mg Q6H PRN Administration PAIN 1-3 Aspirin 325 mg 03/19/18 10:00 03/20/18 09:30 Asa - PO 325 mg DAILY [facility]ER[facility]INE Administration Diazepam 5 mg 03/18/18 15:11 Valium - PO Q8H PRN MUSCLE SPASMS Docusate Sodium 100 mg 03/18/18 22:00 03/20/18 09:30 Colace - PO 100 mg BID [facility]ER[facility]INE Administration Enoxaparin Sodium 40 mg 03/19/18 10:00 03/20/18 09:30 Lovenox - SQ 40 mg DAILY [facility] Administration Fentanyl 50 mcg 03/18/18 15:12 Sublimaze Injection - IVPUSH [id number] PRN PAIN-PACU ORDER X 4 DOSES ONLY Ondansetron HCl 4 mg 03/18/18 15:12 Zofran Injection IVPUSH Q6H PRN NAUSEA AND/OR VOMITING Oxycodone HCl 10 mg 03/18/18 15:11 03/20/18 09:28 Roxicodone - PO 10 mg Q4H PRN Administration PAIN LEVEL 6-10 Oxycodone HCl 5 mg 03/18/18 20:20 03/19/18 21:39 Roxicodone - PO 5 mg Q4H PRN Administration PAIN LEVEL 1-5 Promethazine HCl 12.5 mg 03/18/18 15:12 Phenergan Injection - IVPUSH Q6H PRN NAUSEA-FOR RESCUE AFTER 15 MIN ASSESSMENT/PLAN: Pat Hester is a 47yo woman with a PMH of high grade ER+/PA+ left DCIS, POD #2 s/p L mastectomy with BENJI flap reconstruction, R reduction mastopexy. She is recovering well from surgery but continues to require ICU care for monitoring of her flap. Neuro: - No issues, A&O. - Adequate pain control with PRN tylenol and oxycodone - Fentanyl PRN available but has not been required - Diazepam PRN for muscle spasms CV: - No issues - Pulm: - No issues - May use supplemental O2 PRN, but has not needed - IS 10x per hour, encourage OOB Heme: - Hgb stable postoperatively - Monitor daily CBC - ASA 325 daily GI: - Tolerating general diet - Docusate. PRN promethazine Renal: - Voiding appropriately ID: - Completed perioperative abx Endo: - No issues Wounds: - Continue Q1 vascular flap checks - Continue drains with routine drain care - Continue surgical bra Musc: - OOB as tolerated - PT PPx: - Lovenox - No indication for GI ppx FEN: - General diet - SLIV - Replete lytes PRN Dispo: - Monitor in ICU for hourly flap checks Seen and discussed with Dr Lopez. Martine Morrow PGY1 Visit type - Emergency Visit Emergency Visit: No - New Patient This patient is new to me today: No - Critical Care Critical Care patient: Yes Total Critical Care Time (in minutes): 45 Critical Care Statement: The care of this patient involved high complexity decision making to prevent further life threatening deterioration of the patient 's condition and/or to evaluate & treat vital organ system(s) failure or risk of failure.
[2018-03-21] MEDS: oxyCODONE HCL 5 MG TABLET PO PRN ×3 (05:55→21:59)
[2018-03-21] MEDS: ACETAMINOPHEN 325 MG TABLET (FP) PO PRN (05:59)
[2018-03-21 06:04] LABS: HEMATOCRIT 23.8 % (32.4-45.2); HEMOGLOBIN 8.1 GM/dL (10.7-15.3); MCH 29.9 pg (25.7-33.7); MEAN CELL VOLUME 87.9 fl (80-96); MEAN PLT VOLUME 7.4 fl (7.5-11.1); PLATELET COUNT 208 K/MM3 (134-434); RBC 2.71 M/mm3 (3.60-5.2); RDW 13.3 % (11.6-15.6); WHITE BLOOD COUNT 6.4 K/mm3 (4.0-10.0)
[2018-03-21 06:19] LABS: ANION GAP 6 MMOL/L (8-16); BLOOD UREA NITROGEN 8 mg/dL (7-18); CALCIUM 8.1 mg/dL (8.5-10.1); CHLORIDE 105 mmol/L (98-107); CO2 29 mmol/L (21-32); CREATININE 0.7 mg/dL (0.55-1.3); GLUCOSE,RANDOM 88 mg/dL (74-106); PHOSPHOROUS 2.4 mg/dL (2.5-4.9); POTASSIUM 4.3 mmol/L (3.5-5.1); SODIUM 140 mmol/L (136-145)
--- NOTE | 2018-03-21 07:41 | PN ---
Progress Note (short form) - Note Progress Note: POD#3 s/p left skin-sparing mastectomy with immediate BENJI flap reconstruction and symmetrizing right breast reduction. Feels well overall. Mostly sore in the abdomen. Tolerating PO. Voiding. AVSS FRANTZ: Breast 20/50 Abdomen: 100/70 Left breast soft with normal ecchymosis and swelling. Flap skin paddle soft with biphasic doppler signal. Bilateral breast incisions C/D/I Abdomen, soft, appropriately tender. Incisions C/D/I. A/P: -Ready for discharge home today. Needs VNS set up for drain care and incision monitoring. -F/U this week in office (Thursday).
--- NOTE | 2018-03-21 09:49 | PN ---
Progress Note, Physician Chief Complaint: Left breast cancer DCIS central/overlapping regions s/p left breast total mastectomy with SLN biopsy and BENJI flap reconstruction History of Present Illness: The patient was recently diagnosed with extensive left breast central calcifications with biopsy proven DCIS. MRI showed other areas of significant enhancement and mastectomy was recommended. She underwent a left breast total mastectomy and sentinel lymph node biopsy with BENJI flap reconstruction on March 18, 2018. She was admitted to the ICU postoperatively for flap monitoring wound management. - Current Medication List Current Medications: Active Medications Acetaminophen (Tylenol -) 650 mg PO Q6H PRN PRN Reason: PAIN 1-3 Last Admin: 03/21/18 05:59 Dose: 650 mg Aspirin (Asa -) 325 mg PO DAILY [facility] Last Admin: 03/20/18 09:30 Dose: 325 mg Diazepam (Valium -) 5 mg PO Q8H PRN PRN Reason: MUSCLE SPASMS Docusate Sodium (Colace -) 100 mg PO BID [facility] Last Admin: 03/20/18 21:36 Dose: 100 mg Enoxaparin Sodium (Lovenox -) 40 mg SQ DAILY [facility] Last Admin: 03/20/18 09:30 Dose: 40 mg Fentanyl (Sublimaze Injection -) 50 mcg IVPUSH [id number] PRN PRN Reason: PAIN-PACU ORDER X 4 DOSES ONLY Ondansetron HCl (Zofran Injection) 4 mg IVPUSH Q6H PRN PRN Reason: NAUSEA AND/OR VOMITING Oxycodone HCl (Roxicodone -) 10 mg PO Q4H PRN PRN Reason: PAIN LEVEL 6-10 Last Admin: 03/21/18 05:55 Dose: 10 mg Oxycodone HCl (Roxicodone -) 5 mg PO Q4H PRN PRN Reason: PAIN LEVEL 1-5 Last Admin: 03/19/18 21:39 Dose: 5 mg Promethazine HCl (Phenergan Injection -) 12.5 mg IVPUSH Q6H PRN PRN Reason: NAUSEA-FOR RESCUE AFTER 15 MIN - Objective Vital Signs: Vital Signs Temperature 98.4 F 03/21/18 08:00 Pulse Rate 86 03/21/18 08:00 Respiratory Rate 16 03/21/18 08:00 Blood Pressure 106/58 L 03/21/18 08:00 O2 Sat by Pulse Oximetry (%) 98 03/20/18 20:51 Constitutional: Yes: Well Nourished, No Distress Eyes: Yes: WNL HENT: Yes: WNL Neck: Yes: WNL Cardiovascular: Yes: Regular Rate and Rhythm Respiratory: Yes: Regular, CTA Bilaterally Gastrointestinal: Yes: Normal Bowel Sounds, Soft ...Rectal Exam: Yes: Deferred Genitourinary: Yes: WNL Breast(s): Yes: Other (Breast and abdominal wounds clean, dry, and intact. Drains functioning well. Good pain control and sitting OOB.) Extremities: Yes: WNL Wound/Incision: Yes: Clean/Dry, Well Approximated Neurological: Yes: WNL Psychiatric: Yes: Alert, Oriented Labs: CBC, BMP 03/21/18 05:30 03/21/18 05:30 Problem List - Problems (1) Breast cancer Assessment/Plan: The patient is doing well POD#3 s/p left breast total mastectomy sentinel lymph node biopsy and BENJI flap reconstruction with right breast reduction mastopexy for symmetry. She is doing well and the BENJI flap is warm and viable with good dopplerable signals. Drains functioning well. OOB ambulating today. Regular diet. Patient to be discharged tomorrow AM and VNS set up on discharge. Continue IV antibiotics. Follow up with Drs. Guadalupe and Violette in 1 week. Home on percocet for pain and cefadroxil antibiotics. Keep supportive bra in place day/night. No Heavy activity or exercise. Record drain outputs daily. Stable for discharge tomorrow AM. Qualifiers: Breast location: central portion of breast Estrogen receptor status: positive Patient sex: female Laterality: left Qualified Code(s): C50.112 - Malignant neoplasm of central portion of left female breast; Z17.0 - Estrogen receptor positive status [ER+]
[2018-03-21] MEDS: DOCUSATE SODIUM 100 MG CAPSULE (FP) PO SCH ×2 (10:04→21:59)
[2018-03-21] MEDS: ENOXAPARIN NA (PORCINE) 40 MG/0.4 ML DISP.SYRIN SQ SCH (10:04)
[2018-03-21] MEDS: ASPIRIN 325 MG TABLET PO SCH (10:04)
--- NOTE | 2018-03-21 11:21 | PN ---
Teaching Attending Note Name of Resident: Usman Márquez ATTENDING PHYSICIAN STATEMENT I saw and evaluated the patient. I reviewed the resident's note and discussed the case with the resident. I agree with the resident's findings and plan as documented. SUBJECTIVE: Pt seen and examined in the ICU. Pain controlled. +flatus. Ambulating around unit. OBJECTIVE: Vital Signs Period Temp Pulse Resp BP Sys/Hall Pulse Ox Last 24 Hr 98 F-98.8 F 74-98 13-20 98-119/47-66 98 Intake & Output 03/18/18 03/19/18 03/20/18 03/21/18 23:59 23:59 23:59 23:59 Intake Total 4425 1885 1050 300 Output Total 1335 2205 1840 140 Balance 3090 -320 -790 160 Weight 94.801 kg Gen: NAD in chair Heart: RRR Lung: decreased breath sounds at the bases Abd: soft, nontender Ext: no edema Drains with serosanguinous fluid CBC, BMP 03/21/18 05:30 03/21/18 05:30 Active Medications Acetaminophen (Tylenol -) 650 mg PO Q6H PRN PRN Reason: PAIN 1-3 Last Admin: 03/21/18 05:59 Dose: 650 mg Aspirin (Asa -) 325 mg PO DAILY [facility] Last Admin: 03/21/18 10:04 Dose: 325 mg Diazepam (Valium -) 5 mg PO Q8H PRN PRN Reason: MUSCLE SPASMS Docusate Sodium (Colace -) 100 mg PO BID [facility] Last Admin: 03/21/18 10:04 Dose: 100 mg Enoxaparin Sodium (Lovenox -) 40 mg SQ DAILY [facility] Last Admin: 03/21/18 10:04 Dose: 40 mg Fentanyl (Sublimaze Injection -) 50 mcg IVPUSH [id number] PRN PRN Reason: PAIN-PACU ORDER X 4 DOSES ONLY Ondansetron HCl (Zofran Injection) 4 mg IVPUSH Q6H PRN PRN Reason: NAUSEA AND/OR VOMITING Oxycodone HCl (Roxicodone -) 10 mg PO Q4H PRN PRN Reason: PAIN LEVEL 6-10 Last Admin: 03/21/18 05:55 Dose: 10 mg Oxycodone HCl (Roxicodone -) 5 mg PO Q4H PRN PRN Reason: PAIN LEVEL 1-5 Last Admin: 03/19/18 21:39 Dose: 5 mg Promethazine HCl (Phenergan Injection -) 12.5 mg IVPUSH Q6H PRN PRN Reason: NAUSEA-FOR RESCUE AFTER 15 MIN ASSESSMENT AND PLAN: L Breast Ca s/p L Total Mastectomy/BENJI flap reconstruction Anemia - pain control - incentive spirometry - monitor drain output - monitor urine output, creatinine - PO as tolerated - DVT prophylaxis
--- NOTE | 2018-03-21 11:29 | PN ---
Physical Exam: SUBJECTIVE: Patient seen and examined at bedside. Pain well controlled. Pt OOB. +flatus, -BM. OBJECTIVE: Vital Signs Period Temp Pulse Resp BP Sys/Hall Pulse Ox Last 24 Hr 98 F-98.8 F 74-98 13-20 98-119/47-66 98 GENERAL: Awake, alert, and fully oriented, in no acute distress. HEAD: Normal with no signs of trauma. EYES: Pupils equal, round and reactive to light, extraocular movements intact, sclera anicteric, conjunctiva clear. No lid lag. EARS, NOSE, THROAT: Moist mucous membranes. NECK: supple LUNGS: Breath sounds equal, clear to auscultation bilaterally. splinting due to anterior chest wall pain HEART: Regular rate and rhythm, normal S1 and S2 ABDOMEN: +bs, soft, dressing c/d/i MUSCULOSKELETAL: No CVA tenderness. LOWER EXTREMITIES: 2+ pulses, warm, well-perfused. No peripheral edema. 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 Good eye contact. Appropriate mood and affect. SKIN: Warm, dry DRAINS: R upper breast, R lower abd, L upper breast, L lower abd, all small volume bloody drainage Laboratory Results - last 24 hr 03/18/18 03/21/18 03/21/18 06:16 05:30 05:30 WBC 6.4 RBC 2.71 L Hgb 8.1 L Hct 23.8 L MCV 87.9 MCH 29.9 MCHC 34.0 RDW 13.3 Plt Count 208 MPV 7.4 L Sodium 140 Potassium 4.3 Chloride 105 Carbon Dioxide 29 Anion Gap 6 L BUN 8 Creatinine 0.7 Creat Clearance w eGFR > 60 Random Glucose 88 Calcium 8.1 L Phosphorus 2.4 L Magnesium 2.0 Crossmatch See Detail Active Medications Generic Name Dose Route Start Last Admin Trade Name Freq PRN Reason Stop Dose Admin Acetaminophen 650 mg 03/18/18 20:00 03/21/18 05:59 Tylenol - PO 650 mg Q6H PRN Administration PAIN 1-3 Aspirin 325 mg 03/19/18 10:00 03/21/18 10:04 Asa - PO 325 mg DAILY JERMAINE Administration Diazepam 5 mg 03/18/18 15:11 Valium - PO Q8H PRN MUSCLE SPASMS Docusate Sodium 100 mg 03/18/18 22:00 03/21/18 10:04 Colace - PO 100 mg BID JERMAINE Administration Enoxaparin Sodium 40 mg 03/19/18 10:00 03/21/18 10:04 Lovenox - SQ 40 mg DAILY [facility]ER[facility]INE Administration Fentanyl 50 mcg 03/18/18 15:12 Sublimaze Injection - IVPUSH [id number] PRN PAIN-PACU ORDER X 4 DOSES ONLY Ondansetron HCl 4 mg 03/18/18 15:12 Zofran Injection IVPUSH Q6H PRN NAUSEA AND/OR VOMITING Oxycodone HCl 10 mg 03/18/18 15:11 03/21/18 05:55 Roxicodone - PO 10 mg Q4H PRN Administration PAIN LEVEL 6-10 Oxycodone HCl 5 mg 03/18/18 20:20 03/19/18 21:39 Roxicodone - PO 5 mg Q4H PRN Administration PAIN LEVEL 1-5 Promethazine HCl 12.5 mg 03/18/18 15:12 Phenergan Injection - IVPUSH Q6H PRN NAUSEA-FOR RESCUE AFTER 15 MIN ASSESSMENT/PLAN: 47 y/o F w/ high grade ER+/TN+ L breast DCIS s/p L total mastectomy w/ BENJI flap reconstruction and R reduction mastopexy admitted to ICU for flap monitoring. #POD3 s/p L total mastectomy w/ BENJI flap reconstruction and R reduction mastopexy -flap doppler checks q1h -OOB w/ PT -IVF repletion d5 1/2ns @75 -pain control with oxycodone 5, 10 and tylenol -cont ABx -cont ASA -cont Lovenox -monitor UO and drains -clear liquid diet, no chocolate, no caffeine -dc rodriguez -incentive spirometry #FEN -no IVF -lytes wnl -regular diet w/o caffeine #PPx -DVT: Lovenox 40sq -GI: colace #dispo -ICU, for discharge in AM Visit type - Emergency Visit Emergency Visit: No - New Patient This patient is new to me today: No - Critical Care Critical Care patient: Yes Total Critical Care Time (in minutes): 40 Critical Care Statement: The care of this patient involved high complexity decision making to prevent further life threatening deterioration of the patient 's condition and/or to evaluate & treat vital organ system(s) failure or risk of failure.
[2018-03-22 05:42] LABS: BASO % 0.3 % (0-2.0); EOS % 5.8 % (0-4.5); HEMATOCRIT 24.2 % (32.4-45.2); HEMOGLOBIN 8.2 GM/dL (10.7-15.3); LYMPH % 21.5 % (8-40); MCH 29.7 pg (25.7-33.7); MCHC 33.8 g/dl (32.0-36.0); MEAN CELL VOLUME 87.9 fl (80-96); MEAN PLT VOLUME 7.4 fl (7.5-11.1); MONO % 9.6 % (3.8-10.2); NEUT % 62.8 % (42.8-82.8); PLATELET COUNT 287 K/MM3 (134-434); RBC 2.76 M/mm3 (3.60-5.2); RDW 13.3 % (11.6-15.6); WHITE BLOOD COUNT 5.3 K/mm3 (4.0-10.0)
[2018-03-22 06:02] LABS: ANION GAP 8 MMOL/L (8-16); BLOOD UREA NITROGEN 9 mg/dL (7-18); CALCIUM 8.3 mg/dL (8.5-10.1); CHLORIDE 104 mmol/L (98-107); CO2 27 mmol/L (21-32); CREATININE 0.6 mg/dL (0.55-1.3); GLUCOSE,RANDOM 82 mg/dL (74-106); MAGNESIUM 2.1 mg/dL (1.8-2.4); PHOSPHOROUS 3.3 mg/dL (2.5-4.9); POTASSIUM 4.5 mmol/L (3.5-5.1); SODIUM 139 mmol/L (136-145)
[2018-03-22] MEDS: oxyCODONE HCL 5 MG TABLET PO PRN ×2 (08:14→16:14)
[2018-03-22] MEDS: ENOXAPARIN NA (PORCINE) 40 MG/0.4 ML DISP.SYRIN SQ SCH (09:10)
[2018-03-22] MEDS: ASPIRIN 325 MG TABLET PO SCH (09:10)
[2018-03-22] MEDS: DOCUSATE SODIUM 100 MG CAPSULE (FP) PO SCH (09:10)
--- NOTE | 2018-03-22 11:21 | PN ---
Progress Note (short form) - Note Progress Note: POD#4 PT without any complaints. 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 Vital Signs Period Temp Pulse Resp BP Sys/Hall Pulse Ox Last 24 Hr 98.6 F-99.4 F 79-96 14-22 97-119/52-76 97-97 Right breast: 10ml serous Left breast: 10 ml serous Right abd: 125ml serousangrenous Left abd: 103ml serosangrenous GEN: appears comfortbale Right breast: Incision c/d/i. steri-strips in place, mild ecchymosis. FRANTZ removed today. Left breast with good doppler signal, falp warm to touch with good cap refill. Incision c/d/i with steri-strips. Mild ecchymosis to surrounding breast tissue. Left axillary innc c/d/i. ABD: umbilicus c/d/i and lower abd incision. No drainage or erythema noted. LE: no calf tendneress of swelling noted. A/P: 47 yo female s/p s/p Right breast reduction mastopexy, left mastectomy with BENJI flap reconstruction Doing well clinically Spoke with Dr. Villareal and plan for discharge today after VNS confirmed Discharge instructions and follow-up instructions discussed with the patient
--- NOTE | 2018-03-22 12:12 | PN ---
Teaching Attending Note Name of Resident: Usman Márquez ATTENDING PHYSICIAN STATEMENT I saw and evaluated the patient. I reviewed the resident's note and discussed the case with the resident. I agree with the resident's findings and plan as documented. SUBJECTIVE: Pt seen and examined in the ICU. Pain controlled. Ambulating around unit. OBJECTIVE: Vital Signs Period Temp Pulse Resp BP Sys/Hall Pulse Ox Last 24 Hr 98.6 F-99.4 F 79-96 14-22 97-119/52-76 97-97 Intake & Output 03/19/18 03/20/18 03/21/18 03/22/18 23:59 23:59 23:59 23:59 Intake Total 1885 1050 1000 270 Output Total 2205 1840 364 740 Balance -320 -790 636 -470 Weight 94.801 kg Gen: NAD at rest Heart: RRR Lung: decreased breath sounds at the bases Abd: soft, nontender Ext: no edema Drains with serosanguinous fluid CBC, BMP 03/22/18 05:30 03/22/18 05:30 Active Medications Acetaminophen (Tylenol -) 650 mg PO Q6H PRN PRN Reason: PAIN 1-3 Last Admin: 03/21/18 05:59 Dose: 650 mg Aspirin (Asa -) 325 mg PO DAILY [facility] Last Admin: 03/22/18 09:10 Dose: 325 mg Docusate Sodium (Colace -) 100 mg PO BID [facility] Last Admin: 03/22/18 09:10 Dose: 100 mg Enoxaparin Sodium (Lovenox -) 40 mg SQ DAILY [facility] Last Admin: 03/22/18 09:10 Dose: 40 mg Fentanyl (Sublimaze Injection -) 50 mcg IVPUSH [id number] PRN PRN Reason: PAIN-PACU ORDER X 4 DOSES ONLY Ondansetron HCl (Zofran Injection) 4 mg IVPUSH Q6H PRN PRN Reason: NAUSEA AND/OR VOMITING Oxycodone HCl (Roxicodone -) 5 mg PO Q4H PRN PRN Reason: PAIN LEVEL 4 - 6 Last Admin: 03/22/18 08:14 Dose: 5 mg Promethazine HCl (Phenergan Injection -) 12.5 mg IVPUSH Q6H PRN PRN Reason: NAUSEA-FOR RESCUE AFTER 15 MIN ASSESSMENT AND PLAN: L Breast Ca s/p L Total Mastectomy/BENJI flap reconstruction Anemia - pain control - incentive spirometry - monitor drain output - monitor urine output, creatinine - PO as tolerated - DVT prophylaxis - d/c planning
--- NOTE | 2018-03-22 15:04 | PN ---
Physical Exam: SUBJECTIVE: - Up walking yesterday without difficulty - Eating with issues. Passing flatus, no bowel movement yet - Pain well controlled OBJECTIVE: Vital Signs Period Temp Pulse Resp BP Sys/Hall Pulse Ox Last 24 Hr 95.5 F-99 F 79-96 14-22 96-119/52-76 97-97 General: Comfortable, no acute distress HEENT: PERRL, EOMI, MMM, voice normal Cards: RRR, no murmur appreciated Pulm: Comfortable on room air, clear to auscultation bilaterally Breast: s/p L mastectomy with reconstruction and R reduction. Surgical support bra in place. Flap slightly pale in appearance but strong biphasic to triphasic signal and edges healthy in appearance. Flap soft, appropriately TTP. b/l FRANTZ drains with SS drainage. Abd: Soft, appropriate tender. Transverse abdominal incision with surgical dressing in place, c/d/i. B/L abdominal FRANTZ drains with SS drainage. Ext: No LE edema, compression stockings in place. Strength equal bilaterally Vasc: Extremities Skin: Normal color, no rashes or lesions Neuro: A&Ox3, CN grossly intact, normal speech, motor/sensory grossly intact and symmetric Psych: Mood appropriate to situation Laboratory Results - last 24 hr 03/22/18 03/22/18 05:30 05:30 WBC 5.3 RBC 2.76 L Hgb 8.2 L Hct 24.2 L MCV 87.9 MCH 29.7 MCHC 33.8 RDW 13.3 Plt Count 287 D MPV 7.4 L Absolute Neuts (auto) 3.3 Neutrophils % 62.8 Lymphocytes % 21.5 D Monocytes % 9.6 Eosinophils % 5.8 H D Basophils % 0.3 Nucleated RBC % 0 Sodium 139 Potassium 4.5 Chloride 104 Carbon Dioxide 27 Anion Gap 8 BUN 9 Creatinine 0.6 Creat Clearance w eGFR > 60 Random Glucose 82 Calcium 8.3 L Phosphorus 3.3 Magnesium 2.1 Active Medications Generic Name Dose Route Start Last Admin Trade Name Freq PRN Reason Stop Dose Admin Acetaminophen 650 mg 03/18/18 20:00 03/21/18 05:59 Tylenol - PO 650 mg Q6H PRN Administration PAIN 1-3 Aspirin 325 mg 03/19/18 10:00 03/22/18 09:10 Asa - PO 325 mg DAILY JERMAINE Administration Docusate Sodium 100 mg 03/18/18 22:00 03/22/18 09:10 Colace - PO 100 mg BID [facility]ER[facility] Administration Enoxaparin Sodium 40 mg 03/19/18 10:00 03/22/18 09:10 Lovenox - SQ 40 mg DAILY [facility] Administration Fentanyl 50 mcg 03/18/18 15:12 Sublimaze Injection - IVPUSH [id number] PRN PAIN-PACU ORDER X 4 DOSES ONLY Ondansetron HCl 4 mg 03/18/18 15:12 Zofran Injection IVPUSH Q6H PRN NAUSEA AND/OR VOMITING Oxycodone HCl 5 mg 03/21/18 20:30 03/22/18 08:14 Roxicodone - PO 5 mg Q4H PRN Administration PAIN LEVEL 4 - 6 Promethazine HCl 12.5 mg 03/18/18 15:12 Phenergan Injection - IVPUSH Q6H PRN NAUSEA-FOR RESCUE AFTER 15 MIN ASSESSMENT/PLAN: Pat Hester is a 47yo woman with a PMH of high grade ER+/CA+ left DCIS, POD #2 s/p L mastectomy with BENJI flap reconstruction, R reduction mastopexy. She is recovering well from surgery and is ready for discharge with home nursing today. Neuro: - No issues, A&O. - Adequate pain control with PRN tylenol and oxycodone - Diazepam PRN for muscle spasms CV: - No issues Pulm: - No issues - IS 10x per hour, encourage OOB Heme: - Hgb stable postoperatively - Monitor daily CBC - ASA 325 daily GI: - Tolerating general diet - Docusate. PRN promethazine Renal: - Voiding appropriately ID: - Completed perioperative abx Endo: - No issues Wounds: - Right breast FRANTZ to be removed today - Continue drains with routine drain care - Continue surgical bra Musc: - OOB as tolerated - PT/rehab PPx: - Lovenox while inpatient - No indication for GI ppx FEN: - General diet - SLIV - Replete lytes PRN Dispo: - Discharge home today Seen and discussed with Dr Lopez. Martine Morrow PGY1 Visit type - Emergency Visit Emergency Visit: No - New Patient This patient is new to me today: No - Critical Care Critical Care patient: Yes Total Critical Care Time (in minutes): 45 Critical Care Statement: The care of this patient involved high complexity decision making to prevent further life threatening deterioration of the patient 's condition and/or to evaluate & treat vital organ system(s) failure or risk of failure.
[2018-03-22 16:55] VITALS: BP 107/54; PULSE 88; TEMP 98.5
--- NOTE | 2018-03-23 15:28 | PATH ---
Surgical Pathology Report Patient Name: HAKEEM NASCIMENTO [facility]. Rec. #: [id number] /Age/Gender: 1970 (Age: 47) / F Account: [id number] Location: [facility] Taken: 03/18/2018 Received: 03/18/2018 Reported: 03/23/2018 Physicians: Juan Daniel Oakes M.D. Specimen(s) Received A: LEFT BREAST SENTINEL LYMPH NODE B: LEFT BREAST, MASTECTOMY C: LEFT BREAST ANTERIOR MARGIN SUTURE GRIFFIN BIOPSY CAVITY SITE D: LEFT BREAST LOWER OUTER QUADRANT E: RIGHT BREAST TISSUE Clinical History DCIS Intraoperative Consult Diagnosis Left sentinel lymph node (FS): Negative for malignancy (0/1). Dr. Lozano, 03/18/18. Final Diagnosis A. LEFT BREAST SENTINEL NODE, EXCISION (FS): ONE LYMPH NODE, NEGATIVE FOR METASTATIC CARCINOMA (0/1). B. LEFT BREAST, MASTECTOMY: DUCTAL CARCINOMA IN SITU (DCIS), SOLID AND CRIBRIFORM TYPE, INTERMEDIATE TO HIGH NUCLEAR GRADE, WITH FOCAL NECROSIS AND LOBULAR EXTENSION. DCIS MEASURES 2.2 CM IN GREATEST DIMENSION, MICROSCOPICALLY. DCIS IS LESS THAN 1 MM FROM THE CLOSEST MARGIN (ANTERIOR MARGIN). SEE SPECIMEN C FOR FINAL ANTERIOR MARGIN. REMAINDER OF THE BREAST TISSUE SHOW STROMAL FIBROSIS AND FIBROCYSTIC CHANGE. CALCIFICATIONS SEEN IN DCIS AND NONNEOPLASTIC TISSUE. SKIN AND NIPPLE, NEGATIVE FOR DCIS. TWO LYMPH NODES, NEGATIVE FOR METASTATIC CARCINOMA (0/2) PRIOR BIOPSY SITE CHANGES ARE PRESENT. PATHOLOGIC STAGE (pTNM): pTis pN0. SEE DCIS CASE SUMMARY BELOW. C. LEFT BREAST ANTERIOR MARGIN, EXCISION: FIBROADIPOSE TISSUE, NEGATIVE FOR CARCINOMA. D. LEFT BREAST LOWER OUTER QUADRANT, EXCISION: FIBROADIPOSE TISSUE, NEGATIVE FOR CARCINOMA. E. RIGHT BREAST TISSUE, EXCISION: UNREMARKABLE SKIN SEGMENTS AND BENIGN BREAST TISSUE WITH STROMAL FIBROSIS. Comments DCIS of the Breast: Surgical Pathology Cancer Case Summary (Based on AJCC TNM 8 th edition) Procedure _x_ Total mastectomy (including nipple-sparing and skin-sparing mastectomy) Specimen Laterality _x_ Left Size (Extent) of DCIS Estimated size (extent) of DCIS (greatest dimension using gross and microscopic evaluation): at least (millimeters): 22 mm Number of blocks with DCIS: 4 Number of blocks examined: 21 Histologic Type _x_ Ductal carcinoma in situ Architectural Patterns _x_ Cribriform _x_ Solid Nuclear Grade _x_ Grade II and III (intermediate to high) Necrosis _x_ Present, focal (small foci or single cell necrosis) Margins _x_ Uninvolved by DCIS Distance from closest margin (millimeters): less than 1 mm Specify closest margin: anterior See specimen C for final margin Regional Lymph Nodes Lymph Node Examination (required only if lymph nodes are present in the specimen) Number of Lymph Nodes with Macrometastases (>2 mm): 0 Number of Lymph Nodes with Micrometastases (>0.2 mm to 2 mm and/or >200 cells): 0 Number of Lymph Nodes with Isolated Tumor Cells (=0.2 mm and =200 cells): 0 Extranodal Extension: _x_ Not identified Number of Lymph Nodes Examined: 3 Number of [place] Nodes Examined (required only if sentinel nodes are present):1 Pathologic Stage Classification (pTNM, AJCC 8th Edition) Primary Tumor (pT) _x_ pTis (DCIS): Ductal carcinoma in situ Regional Lymph Nodes (pN) Modifier (required only if applicable) _x_ (sn): [place] node(s) evaluated. (pN) : _x_ pN0 Microcalcifications _x_ Present in DCIS _x_ Present in nonneoplastic tissue Comment: Immunohistochemical stains performed at [facility] on this specimen block "B4" and "B7" showed the following results: smooth muscle myosin heavy chain and p63 highlight myoepithelial cell layer in the lesional ducts, consistent with DCIS. Biomarker Studies Results of Estrogen Receptor (ER) and Progesterone Receptor (MS) studies performed prior biopsy (, block A) at [facility] are as follows: ER (clone [id number] mouse monoclonal antibody by [employer]): 100% nuclear staining with strong intensity (Positive). MS (clone16 mouse monoclonal antibody by [employer]): >1% nuclear staining with strong intensity (Positive). Results of ER and MS studies performed prior biopsy (, block B) at [facility] are as follows: ER (clone [id number] mouse monoclonal antibody by [employer]): 100 % nuclear staining with strong intensity (Positive). MS (clone16 mouse monoclonal antibody by [employer]): 40% nuclear staining with strong intensity (Positive). Electronically Signed Stanford Preea M.D. Gross Description A. Received fresh for intraoperative consultation labeled "left sentinel lymph node" is a pink-proctor lymph node which measures 3 x 1.5 x 0.3 cm. The specimen is bisected and entirely submitted for frozen section analysis in 2 cassettes as follows. FSA1-FSA2: Frozen section residue, One bisected lymph node. SZ/03/18/2018 B. Specimen received fresh labeled "left breast, stitch long lateral, short superior", consists of a left mastectomy with an overlying skin with nipple. The total specimen weights 702 grams. The breast measures 25 x 15 x 4cm. The skin measures 5 x 4 cm and the nipple measuring 1.5 cm in diameter. The skin appears normal. The nipple is normal. The margins of resection are inked as following: medial: green, lateral: blue, posterior: black, inferior: yellow, superior: red, and anterior soft tissue margin: orange. The breast is serially sectioned and shows in the upper outer quadrant near the skin and anterior soft margin, there is granular change of the parenchyma, this area measures 3.5cm in greatest dimension. This area to closest margin (anterior soft tissue margin) measures 0.2cm, and more than 2.5cm from other margins. The rest of the breast shows white-proctor streaks, no hemorrhage or mass noted. Two nodular lesion possible lymph nodes are isolated from the lateral portion of adipose tissue, the larger node measures 0.6 in greatest diameter. The entire granular area and digital media representative sections from all of the quadrants, and all the lymph nodes isolated are submitted. 1- Nipple and skin. 2 - Other half of the nipple 3-10: Granular portion of parenchyma with anterior soft tissue margin 11- possible lymph nodes from lateral portion of specimen. 12-15: Other random sections from lateral quadrants. 16-17 Lower and upper medial quadrants.18. Superior margin. 19. Lateral margin. 20. Medial margin. 21. Deep margin. KWS/03/19/2018 C. Received in formalin labeled "left breast anterior margin" is a 7 x 4 x 1 cm yellow adipose soft tissue. A suture griffin biopsy cavity site. New margin is inked in blue. Cut sections show no lesions. Entire specimen is submitted 7 cassettes. D. Received in formalin labeled "left breast lower outer quadrant" is a 5 x 4 x 2 cm yellow adipose undesignated soft tissue. No skin is identified. The entire outer surface is inked in black. Cut section show no identifiable lesions. Molten Iron Pourer sections are submitted in 5 cassettes. E. Received in formalin labeled "right breast tissue" are multiple irregular fragments of skin and fibroadipose tissue measuring 16 x 14 x 4 cm in aggregate. Cut section shows focal areas of fibrosis. Molten Iron Pourer sections are submitted in 3 cassettes (E1-E2: fibrous area). MLTateZ/03/19/2018 shreyas/03/18/2018
== END 2018-03-22 16:55 | disposition home or self-care (01) | DRG 581 ==
LOC: JSAMEDAYSX 05:14 → JICU 18:14
PROVIDERS: ADMIT Surgery Surgical Oncology; ATTEND Surgery Surgical Oncology
PROC: 0HRU077 Replacement of Left Breast using Deep Inferior Epigastric Artery Perforator Flap, Open Approach (ICD-10-PCS; principal; 2018-03-18 08:00)
PROC: 07B60ZX Excision of Left Axillary Lymphatic, Open Approach, Diagnostic (ICD-10-PCS; 2018-03-18 08:00)
PROC: 0HST0ZZ Reposition Right Breast, Open Approach (ICD-10-PCS; 2018-03-18 08:00)
DX: D05.12 Intraductal carcinoma in situ of left breast (principal); Z17.0 Estrogen receptor positive status [ER+]; D64.9 Anemia, unspecified; Z80.3 Family history of malignant neoplasm of breast; Z80.41 Family history of malignant neoplasm of ovary
CPT/HCPCS: 36415; 78195-TC; 80048; 83735; 84100; 85025; 85027; 86850; 86900; 86901; 86922; 88307-TC; 88331-TC; 88341-TC; 94760; 97116-GP; 97161-GP; A9541; J1644

== ENCOUNTER 2019-02-17 04:56 | Day surgery (SDC) | payer BC ==
[2019-02-16 14:05] VITALS: BMI 34.6
[2019-02-17] MEDS ORDERED: GENTAMICIN SO4 80 MG/2 ML VIAL ONE (11:05)
[2019-02-17] MEDS ORDERED: ceFAZolin SODIUM 1 GM VIAL ONE ×2 (11:05→12:38)
[2019-02-17] MEDS ORDERED: LIDOCAINE 1%-EPI 1:100,000 30 ML MDV IJ ONE (11:05)
[2019-02-17] MEDS ORDERED: BACITRACIN 15 GM TUBE TOPICAL OINTMENT ONE ×2 (11:06→14:09)
[2019-02-17] MEDS ORDERED: MIDAZOLAM HCL 2 MG/2 ML SINGLE DOSE VIAL ONE (11:54)
[2019-02-17] MEDS ORDERED: PROPOFOL 20 ML ONE ×3 (11:54→14:18)
[2019-02-17] MEDS ORDERED: ceFAZolin SODIUM 1 GM VIAL IVPB ONE (12:15)
[2019-02-17] MEDS ORDERED: LIDOCAINE HCL/PF 2% SDV 5ML VIAL ONE (12:38)
[2019-02-17] MEDS ORDERED: DEXAMETHASONE SOD PHOSPHATE 4 MG/1 ML VIAL ONE (12:38)
[2019-02-17] MEDS ORDERED: LIDOCAINE 1%/EPI 1:100000 (20 ML MULTI DOSE VIAL) IJ ONE (12:49)
[2019-02-17] MEDS ORDERED: ONDANSETRON 4 MG/2 ML VIAL ONE (14:29)
--- NOTE | 2019-02-17 14:55 | OP ---
Operative Note - Note: Operative Date: 02/17/19 Pre-Operative Diagnosis: 1.Bilateral acquired chest wall deformity, status post bilateral reconstruction with mastectomy of the left breast. 2. Asymmetry of reconstructed chest wall. 3. Personal history of breast carcinoma Operation: 1. Reconstruction of right breast utilizing other techniques. 2. Left breast reconstruction utilizing other technique. 3. Left breast reduction with en bloc resection. 4. Left nipple areolar reconstruction Post-Operative Diagnosis: Same as Pre-op Surgeon: Juan Carlos Guadalupe Calender Tender: Saturnino Booth Anesthesiologist/LABORATORY OPERATIONS COORDINATOR: Trudy Yang Anesthesia: General Specimens Removed: Left breast tissue Estimated Blood Loss (mls): 10 (ml) Fluid Volume Replaced (mls): 800 (ml lr) Operative Report Dictated: Yes
--- NOTE | 2019-02-17 14:56 | SURG ---
Surgery Refractory Technician Note Refractory Technician: Saturnino Booth PA-C (Suzy) Date of Service: 02/17/19 Diagnosis: 1.Bilateral acquired chest wall deformity, status post bilateral reconstruction with mastectomy of the left breast. 2. Asymmetry of reconstructed chest wall. 3. Personal history of breast carcinoma Procedure: 1. Reconstruction of right breast utilizing other techniques. 2. Left breast reconstruction utilizing other technique. 3. Left breast reduction with en bloc resection. 4. Left nipple areolar reconstruction I was present for the entirety of the operative procedure. For further detail, please refer to operative report. Visit type - Case Type Case Type: Scheduled - Emergency Emergency Visit: No - New patient This patient is new to me today: Yes Date on this admission: 02/23/19 - Critical Care Critical Care patient: No
[2019-02-17] MEDS ORDERED: FAMOTIDINE 20 MG/50 ML IVPB 20 MG/50 ML MG IVPB ONE ×2 (15:47→16:21)
[2019-02-17] MEDS ORDERED: FAMOTIDINE 20 MG PREMIXED IVPB IVPB ONE (15:50)
[2019-02-17] MEDS ORDERED: oxyCODONE HCL 5 MG TABLET PO PRN ×2 (16:09)
[2019-02-17] MEDS ORDERED: ONDANSETRON 4 MG/2 ML VIAL IVPUSH PRN (16:09)
[2019-02-17] MEDS ORDERED: LACTATED RINGERS SOLUTION 1,000 ML IV SCH (16:15)
[2019-02-17 17:47] VITALS: TEMP 97.9
[2019-02-17] MEDS ORDERED: oxyCODONE HCL 5 MG TABLET ONE ×2 (17:52→18:26)
[2019-02-17] MEDS ORDERED: oxyCODONE HCL 5 MG TABLET PO ONE ×2 (17:55→18:30)
[2019-02-17 19:51] VITALS: BP 105/70; PULSE 70
--- NOTE | 2019-02-18 15:08 | OP ---
DATE OF OPERATION: 02/17/2019 SURGEON: Juan Daniel Guadalupe M.D. ENGAGEMENT ENGINEER SURGEON: DANNY Redmond PREOPERATIVE DIAGNOSES: 1. Bilateral acquired chest wall deformity, status post bilateral reconstruction with mastectomy of the left breast. 2. Asymmetry of reconstructed chest wall. 3. Personal history of breast carcinoma. POSTOPERATIVE DIAGNOSES: 1. Bilateral acquired chest wall deformity, status post bilateral reconstruction with mastectomy of the left breast. 2. Asymmetry of reconstructed chest wall. 3. Personal history of breast carcinoma. OPERATIVE PROCEDURE: 1. Reconstruction of right breast utilizing other technique. 2. Left breast reconstruction utilizing other technique. 3. Left breast reduction with en bloc resection. 4. Left nipple areolar reconstruction. OPERATIVE INDICATIONS: Patient is a young woman who underwent left mastectomy for breast cancer and now has significant asymmetry of the chest wall with the left breast being larger and significantly disproportional for the patient. She required revision of both breasts with other technique because of the asymmetry, volume correction and discomfort. The risks and benefits, the surgical, versus non-surgical alternatives, as well as the material complications of the procedure were discussed with the patient on multiple occasions preoperatively, including today in the holding area where she was marked in the standing position, with outline of the procedure with both her and she in attendance. OPERATIVE PROCEDURE IN DETAIL: Patient was taken to the operating room and after induction of general anesthesia in the supine position, both arms were extended and padded, Venodyne boots were placed. The entire chest wall, abdomen and flanks were prepped with ChloraPrep solution over the entire extent. At this point after timeout and attention to the procedure, the incisions of the mastectomy scar, the position of the nipple areola complex, which was marked in the standing position, were outlined and then injected with 1% local lidocaine anesthesia with 1:100,000 epinephrine. At this point an incision was made on the left breast, which previously had reconstruction with deep inferior epigastric myocutaneous microsurgical flap reconstruction. The incision was made in the vertical elliptical fashion in the lower portion of the breast excising a block of tissue from the central and lateral portions of the left breast. This breast tissue was excised u sing electrocautery down to the underlying chest wall and then sent for pathologic diagnosis to rule out breast cancer. Once this tissue was removed and sent, copious irrigation of the wound was performed with saline and Betadine. With accomplished a reconstruction of the left breast was carried out with advancement flap closure rotating the lateral portion of the breast into the medial portion and then suturing 2-0 Vicryl sutures onto the deep tissue recreating the vertical portion of the breast with multiple layers of sutures. The deepest layer carried out with multiple interrupted Vicryl sutures were placed. The 2nd layer with 3-0 PDS suture on the deep dermis and a subcuticular suture with 4-0 Biosyn was placed. Attention was then turned to the abdominal wall. An incision was made in the previously placed scar in the suprapubic area and the incision was carried down through the skin, deep into the subcutaneous tissue and down to the underlying rectus muscles. At this point the area over the rectus muscles and external oblique tissue was harvested for reconstructive purposes. After incising deep into the supra muscle area, tissue was removed, preserved and transferred to the back table for reconstruction. The donor site was then closed with multiple layers of sutures and attention was then turned back to the right breast. The tissue that had been harvested for reconstruction was transferred to the right breast in the superior, medial, central and inferior portions of the right breast and then independently on the superior, medial and lateral portions of the left breast. Once this reconstructive tissue was transferred and symmetry achieved and volume, a left nipple areolar reconstruction was carried out with a CV flap. The incisions were made down through the skin to the subcutaneous tissue of the central portion of the breast elevating flaps and then rotating the flaps towards themselves and suturing them together using 3-0 PDS suture on the deep dermis in order to create the nipple areolar complex. These flaps were advanced and closed upon themselves in multiple layers creating the nipple complex in the usual fashion with CV flap. The donor area was also advanced and closed with 3-0 PDS suture in the deep dermis and 5-0 plain suture on the skin to reconstruct the nipple. Sterile dressings using nipple protection and Steri-Strip and Dermabond dressings were placed over both breasts, as well as the donor site for reconstructive tissue on the abdomen. The patient showed good shape and contour. She was placed into a surgery bra, awakened, extubated and transferred to the recovery room in satisfactory condition. Sahra [id number]
== END 2019-02-17 20:09 | disposition home or self-care (01) ==
LOC: JASU-SURG 04:56
PROVIDERS: ATTEND Plastic Surgery
PROC: 0HBU0ZZ Excision of Left Breast, Open Approach (ICD-10-PCS; 2019-02-17)
PROC: 0HRV07Z Replacement of Bilateral Breast with Autologous Tissue Substitute, Open Approach (ICD-10-PCS; principal; 2019-02-17 12:00)
PROC: 0HSXXZZ Reposition Left Nipple, External Approach (ICD-10-PCS; 2019-02-17 12:00)
DX: M95.4 Acquired deformity of chest and rib (principal); N65.0 Deformity of reconstructed breast; N65.1 Disproportion of reconstructed breast; Z90.12 Acquired absence of left breast and nipple; Z85.3 Personal history of malignant neoplasm of breast
CPT/HCPCS: 94760

== ENCOUNTER 2019-02-21 11:35 | Emergency (ER) | payer BC ==
[2019-02-21 11:39] VITALS: BP 127/61; PULSE 84; TEMP 98.7; BMI 34.7
--- NOTE | 2019-02-21 12:10 | PDOC ---
History of Present Illness - General Chief Complaint: Rash Stated Complaint: RASH Time Seen by Provider: 02/21/19 11:47 History Source: Patient - History of Present Illness Initial Comments: 02/21/19 12:58 Chief complaint: Rash Patient 48-year-old female who was treated for breast cancer last year, had reconstruction this past . Patient noticed itchy rash the day before the surgery and noted it to her doctors and they let her have the surgery. Itching his gotten worse and the rash has spread. Patient otherwise feels well, no fever, no shortness of breath. Patient has been using calamine lotion. Patient is nervous regarding the rash GENERAL/CONSTITUTIONAL: No fever, weakness. dizziness HEAD, EYES, EARS, NOSE AND THROAT: No change in vision. No ear pain or discharge. No sore throat. CARDIOVASCULAR: No chest pain RESPIRATORY: No shortness of breath or cough GASTROINTESTINAL: No pain, nausea, vomiting, diarrhea or constipation GENITOURINARY: No dysuria MUSCULOSKELETAL: No neck or back pain SKIN: +rash NEUROLOGIC: No headache, vertigo, loss of consciousness, or loss of sensation. GENERAL: The patient is awake, alert, and fully oriented, in no acute distress. HEAD: Normal with no signs of trauma. EYES: Pupils equal, round and reactive to light, sclera anicteric, conjunctiva clear. ENT: pharynx: no erythema, no exudate, uvula midline NECK: supple CHEST: clear, nontender, rr ABD: soft, nontender BACK: no tenderness or signs of injury EXTREMITIES: Normal range of motion, no edema. See below for rash NEUROLOGICAL: Normal speech, normal gait. SKIN: Warm, Dry, + scattered appendectomy alert, group, questionable with some vesicular component, scaly right before meals area, a little bit to the left forearm, and similar to the posterior bilateral legs. Consistent with ALLERGIC contact dermatitis. Purpura, petechiae or signs of infection Past History - Past Medical History Allergies/Adverse Reactions: Allergies Allergy/AdvReac Type Severity Reaction Status Date / Time No Known Allergies Allergy Verified 02/21/19 11:36 Home Medications: Ambulatory Orders Docusate Sodium [Colace] 100 mg PO BID 10 Days #20 capsule 02/17/19 oxyCODONE HCL [Roxicodone -] 5 mg PO Q6H PRN 5 Days #12 tablet MDD 4 02/17/19 Hydrocortisone Valerate [Westcort -] 1 applic TP BID #30 gm 02/21/19 Anemia: No Asthma: No Cancer: Yes (Left Breast) Cardiac Disorders: No CVA: No COPD: No CHF: No Dementia: No Diabetes: No GI Disorders: No Disorders: No HTN: No Hypercholesterolemia: No Liver Disease: No Seizures: No Thyroid Disease: No - Surgical History Abdominal Surgery: Yes (LAP BAND 2011,Revision 2015) Appendectomy: No Cardiac Surgery: No Cholecystectomy: Yes Lung Surgery: No Neurologic Surgery: No Orthopedic Surgery: No - Suicide/Smoking/Psychosocial Hx Smoking Status: No Smoking History: Never smoked Have you smoked in the past 12 months: No Number of Cigarettes Smoked Daily: 0 Hx Alcohol Use: Yes Drug/Substance Use Hx: No Substance Use Type: None Hx Substance Use Treatment: No *Physical Exam - Vital Signs Last Vital Signs Temp Pulse Resp BP Pulse Ox 98.7 F 84 18 127/61 99 02/21/19 11:36 02/21/19 11:36 02/21/19 11:36 02/21/19 11:36 02/21/19 11:36 Medical Decision Making - Medical Decision Making [id number] female with itchy rash, started 1 day prior to having breast reconstruction last week, bilateral, consistent with contact dermatitis, no respiratory component. We'll hold off on prednisone given the patient had surgery on , will use topical steroid, instruct patient to take Benadryl or use Benadryl cream and discussed with her surgeon tomorrow whether prednisone would be okay with them if the rash gets worse instead of better. 02/21/19 12:25 Discussed issues, findings, results, applicable medications and treatments and follow-up. All these were understood and all questions were answered 02/21/19 13:03 *DC/Admit/Observation/Transfer Diagnosis at time of Disposition: Contact dermatitis Qualifiers: Contact dermatitis type: allergic Contact dermatitis trigger: unspecified trigger Qualified Code(s): L23.9 - Allergic contact dermatitis, unspecified cause - Discharge Dispostion Disposition: HOME Condition at time of disposition: Stable Decision to Admit order: No - Prescriptions Prescriptions: Hydrocortisone Valerate [Westcort -] 1 applic TP BID #30 gm - Referrals Referrals: Polo Clifford MD [Primary Care Provider] - - Patient Instructions Printed Discharge Instructions: DI for Contact Dermatitis Additional Instructions: You can take Benadryl 25-50 mg every 4 hours for itching or you can use Benadryl cream every 4 hours, do not use both together Apply the steroid cream twice a day, call your doctor tomorrow if the rash is getting worse to see if you're allowed to take prednisone pills or if this will affect you're healing from surgery Return to the ER if shortness of breath, gotten much worse or any other concerns - Post Discharge Activity
== END 2019-02-21 12:30 | disposition home or self-care (01) ==
LOC: JERFT 11:35
DX: L23.9 Allergic contact dermatitis, unspecified cause (principal); Z85.3 Personal history of malignant neoplasm of breast
CPT/HCPCS: 99281-25

== ENCOUNTER 2022-05-06 15:14 | Emergency (ER) | payer OTHER, BC ==
[2022-05-06 15:32] VITALS: BP 119/75; PULSE 67; RESP 20; TEMP 98.2; BMI 34.9
== END 2022-05-06 19:21 | disposition home or self-care (01) ==
LOC: FER 15:14
DX: S80.02XA Contusion of left knee, initial encounter (principal); W01.0XXA Fall on same level from slipping, tripping and stumbling without subsequent striking against object, initial encounter
CPT/HCPCS: 73564-TC-LT-FY; 73590-TC-LT-FY; 99284-25